=== PATIENT | male | born 1960 | race Caucasian/White ===

== ENCOUNTER → 2019-05-28 10:44 | Outpatient (BNVA) | payer MEDICAID, SELFPAY | PROVIDERS: Family Provider Nurse Practitioner; PCP Nurse Practitioner; Visit Provider Nurse Practitioner | DX: I10 Essential (primary) hypertension (principal); F41.9 Anxiety disorder, unspecified; J30.1 Allergic rhinitis due to pollen; J44.9 Chronic obstructive pulmonary disease, unspecified; K21.9 Gastro-esophageal reflux disease without esophagitis; E55.9 Vitamin D deficiency, unspecified | CPT/HCPCS: 80053; 80061; 82306; 85025 ==

== ENCOUNTER 2019-07-02 08:32 | Outpatient (CLI) | payer MEDICAID, SELFPAY ==
--- NOTE | 2019-07-02 08:37 | CT_ITS ---
WS: [id number] CT NECK WITH CONTRAST HISTORY: MALIGNANT NEOPLASM OF BASE OF TONGUE TECHNIQUE: Contiguous 5 mm axial images are performed through the neck with intravenous contrast. Sag ittal and coronal reformats are also submitted. All CT scans at [facility] use at least o ne of these dose optimization techniques: automated exposure control; mA and/or kV adjustment per pat ient size (includes targeted exams where dose is matched to clinical indication); or iterative recons truction. CONTRAST: CONTRAST: Visipaque 320; 95 mL IV. DLP: 1687.68 mGycm COMPARISON: 01/30/2019 and 12/14/2018, PET/CT 04/21/2018 Nasopharynx, oropharynx, hypopharynx and larynx are unremarkable. No soft tissue masses or abnormal e nhancement. No mass or abnormal enhancement at the tongue base. Torus tubarius and fossa of Rosenmuller and parapharyngeal fat are normal. No significant lymphadenopathy is identified. Surgical clips along LEFT cervical chain from prior nod al dissection. Thyroid gland and salivary glands are normally enhancing with no masses. Mild cervical spondylitic changes at C5-6 are similar to prior studies. Visualized portions of the skull base demonstrate no abnormalities. Orbits and globes are within norm al limits. No soft tissue masses. Visualized paranasal sinuses and mastoid air cells are normal. Lung apices are clear. 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 CT/CT neck w con* [id number] IMPRESSION: 1. Stable neck CT. No evidence for new or recurrent mass at the tongue base. 2. No adenopathy. 3. Prior LEFT cervical ju dissection is stable.
[2019-07-02] MEDS: iodixanol 320 mg/mL 100mL Btl IV (09:16)
== END 2019-07-02 08:33 | disposition home or self-care (01) ==
LOC: RADWPI 08:37
PROVIDERS: Family Provider Nurse Practitioner; PCP Nurse Practitioner; Visit Provider Radiology Radiation Oncology
DX: C01 Malignant neoplasm of base of tongue (principal)
CPT/HCPCS: 70491; Q9967

== ENCOUNTER 2019-07-03 10:15 | Outpatient (CLI) | payer MEDICAID, SELFPAY ==
--- NOTE | 2019-07-03 11:36 | ONCRAD EPV_ITS ---
Radiation Oncology Established Patient Visit Patient: Bryson MR#: [id number] : 1960> Age: 59> Sex: Male> Dictated by: Dr. Irvin Perry Date of Service: 07/03/2019 Referring Physician(s) : Dr. Bernabe Douglas Diagnosis: C01 - Malignant neoplasm of base of tongue, Diagnosed 05/02/2017 (Active) Stage DEREK, T1o, N2, M0 Radiotherapy to Date: Course: C1 Treatment Site: [id number] Ref. ID: [id number] Energy: 6X Dose/Fx (cGy): 200 #Fx: 22 / 30 Dose Correction (cGy): 0 Total Dose (cGy): 4,400 Start Date: 05/11/2017 End Date: 06/13/2017 Elapsed Days: 33 Course: C1 Treatment Site: [id number] Ref. ID: [id number] Energy: 6X Dose/Fx (cGy): 200 #Fx: 8 / 8 Dose Correction (cGy): 0 Total Dose (cGy): 1,600 Start Date: 06/16/2017 End Date: 06/27/2017 Elapsed Days: 11 Course: C1 Treatment Site: [id number] Ref. 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 He reports continued dry mouth and altered taste with some gradual improvement. He denies sore throat, ear pain, odynophagia, dysphagia, cough, abdominal pain, nausea, vomiting, bone pain, choking, aspiration or difficulty breathing. He underwent a PET/CT on 12/02/2017 which showed no evidence for residual or recurrent malignancy. CT of neck with contrast on 05/08/2018 showed no evidence of recurrent / metastatic disease. CT of neck with contrast on 12/14/2018 showed no evidence of residual or recurrent tongue base neoplasm or cervical lymphadenopathy. Most recent CT of neck with IV contrast on July 02, 2019 showed no evidence for new or recurrent mass at the base of tongue and no cervical lymphadenopathy. It is overall stable CT scan unchanged from previous ones. The patient is doing well and denies fatigue, poor appetite, significant weight loss, cough, shortness breath, abdominal pain, nausea, vomiting or bone pain. Current Medications: Acetaminophen, aspirin Low Dose, budesonide-Formoterol Fumarate, claritin, lisinopril, nasonex, omeprazole, proAir HFA, vistaril. Allergies: Dilaudid, Morphine Sulfate, FentaNYL HCl, Hydrocodone-Acetaminophen and OxyCODONE HCl. Current Complaints / Review of Systems: Constitutional - Denies lack of appetite, fatigue, fever and night sweats. Eyes - Denies blurred vision. ENMT - Complains of problems with hearing in both ears. Complains of mouth dryness. Complains of altered taste with certain foods. Complains of tinnitus. Denies dysphagia, ear pain and stomatitis. Neck - Denies neck pain and decreased range of motion. Integumentary - Denies rash. Cardiovascular - Denies arrhythmias, chest pain and edema. Respiratory - Complains of cough which is dry and hiccoughs occasionally. Denies dyspnea and wheezing. Gastrointestinal - Denies abdominal pain, constipation, diarrhea, heartburn / dyspepsia, melena / GI bleeding, nausea and vomiting. Genitourinary (M) - Complains of nocturia gets up about 1 to 2 times per night. Denies dysuria, frequency and urgency. Musculoskeletal - Complains of arthritis and joint pain. Denies bone pain and muscle weakness. Neurologic - Complains of headaches in which he has h/o having migraines. Denies dizziness and abnormal gait. Endocrine - Denies diabetes and thyroid disease. Hematologic/Lymphatic - Denies tender or enlarged lymph nodes.. Vital Signs: Performed on 07/03/2019 10:41 AM BMI - 34.322 kg/m2 (high), Height - 70.00 in, Weight - 239.2 lbs, Temperature - 98.7 f, Pulse - 72, Respiration - 18, O2 Sat - 96 %, Pain - 7 and BP - 131/ 89 mm(hg). Physical Exam: General: Alert and oriented x 3. No acute distress. HEENT: Normocephalic, atraumatic. Extraocular Movements Intact: Pupils Equal, Round, Reactive to Light and Accommodation: Sclerae anicteric. Oral cavity is clear without lesions, masses or ulcers. NECK: Well-healed surgical incision from previous neck dissection, supple without supraclavicular or jugular lymphadenopathy. LUNGS: Clear to auscultation bilaterally without rales, rhonchi or wheeze. HEART: Regular rate and rhythm, normal S1 and S2 without murmur, gallop or rub. MUSCULOSKELETAL: No tenderness or percussion pain over the axial skeleton, scapulae or pelvis. ABDOMEN: Soft, nontender, nondistended without masses or organomegaly. Bowel sounds are present. EXTREMITIES: No peripheral edema is identified. Limited motor and sensory examination are grossly intact and symmetric bilaterally. NEUROLOGIC: Cranial nerves II ???XII are grossly intact. Normal sensation, strength 5/5 in all extremities, normal gait, no ataxia. Performance Status: 0 - Fully active, able to carry on all predisease activities without restrictions. (ECOG) Lab: None pending. Pathology: squamous cell carcinoma Imaging: See HPI Impression/plan: There is no clinical evidence of recurrent head and neck cancer. We will continue cancer surveillance. I encouraged the patient to continue to follow up with Dr. Douglas of ENT. I will order a CT of neck in 4-6 months. The patient will follow up with me afterwards. Signed by: 07/03/2019 11:34:29 AM <<Signature on File>> CPT Code: CPT Code: Signed By: Dr. Irvin Perry, 07/03/2019 11:34:30 AM <<Signature on File>>
== END 2019-07-03 10:16 | disposition home or self-care (01) ==
LOC: ONCMED 10:17
PROVIDERS: Family Provider Nurse Practitioner; PCP Nurse Practitioner; Visit Provider Radiology Radiation Oncology
DX: Z08 Encounter for follow-up examination after completed treatment for malignant neoplasm (principal); Z85.810 Personal history of malignant neoplasm of tongue; Z79.82 Long term (current) use of aspirin; Z79.891 Long term (current) use of opiate analgesic; Z92.3 Personal history of irradiation; Z92.21 Personal history of antineoplastic chemotherapy
CPT/HCPCS: 99213

== ENCOUNTER 2019-07-08 11:20 | Outpatient (CLI) | payer MEDICAID, SELFPAY ==
--- NOTE | 2019-07-08 11:27 | XR_ITS ---
WS: [id number] XR chest 2V* [id number] REASON FOR EXAM: COUGH FINDINGS: The heart and mediastinal interfaces are normal. The lung stevenson are well aerated. No pneumonia, pleural effusion, pulmonary edema, or mass effect. No osseous abnormalities other than degenerate changes of the thoracic spine. The hilum and apices are normal. XR/XR chest 2V* [id number] IMPRESSION: Negative chest for active pathology.
== END 2019-07-08 11:21 | disposition home or self-care (01) ==
LOC: RAD 11:24
PROVIDERS: Family Provider Nurse Practitioner; PCP Nurse Practitioner; Visit Provider Specialist
DX: R05 Cough (principal)
CPT/HCPCS: 71046

== ENCOUNTER → 2019-08-02 08:33 | Outpatient (BNVA) | payer MEDICAID, SELFPAY | PROVIDERS: Family Provider Nurse Practitioner; PCP Nurse Practitioner; Visit Provider Nurse Practitioner Family | DX: R09.89 Other specified symptoms and signs involving the circulatory and respiratory systems (principal); J32.9 Chronic sinusitis, unspecified | CPT/HCPCS: 87804 ==

== ENCOUNTER 2019-08-10 15:29 | Emergency (ER) | payer MEDICAID, SELFPAY ==
[2019-08-10 15:29] VITALS: BP 172/98; PULSE 62; RESP 16; TEMP 36.6; O2SAT 97
[2019-08-10 15:30] VITALS: BMI 35.2
[2019-08-10 15:32] VITALS: O2SAT 98
--- NOTE | 2019-08-10 15:34 | ED_ITS ---
HPI - Headache General: Chief Complaint: Headache Stated Complaint: HEADACHE, VISUAL DISTURBANCE Time Seen by Provider: 08/10/19 15:34 Source: patient Mode of arrival: EMS Limitations: no limitations History of Present Illness: HPI Narrative: Patient is a very nice 59-year-old gentleman who presents to the ED today with complaints of a headache. Patient tells me he has suffered from migraine headaches for a long time but states he has not had one in approximately 6 to 8 months. Patient states his migraine headaches are normally treated successfully with OTC Excedrin or Advil. Patient tells me his headache today is slightly different than his normal migraine stating it is only affecting his right side. He is complaining of some mild photophobia in the right eye but denies any double vision or loss of vision. Patient is not having any lightheadedness/dizziness, slurred speech, facial drooping, paresthesias, sensory changes, problems with balance, weakness or ti ngling to extremities. He has not had any recent injury or trauma. States he was recently treated for sinus infection but denying nasal pain/pressure/discharge. MD elicited complaint: headache and migraine Onset description: gradually Location: right Exacerbating factors: light and noise Relieving factors: nothing Context: occurred at rest Associated symptoms: Reports no associated symptoms; Deny chest pain, confusion, fever(s), lightheadedness, nausea, pre-syncope, rash, syncope or vomiting Review of Systems Const: Denies: fever, chills, body aches or fatigue Eyes: Reports: photophobia; Denies: change in vision, blurry vision, eye discomfort, eye discharge, floaters or seeing flashes ENMT: Denies: throat pain, enlarged tonsils, painful swallowing, swelling of lips/tongue, oral sores/lesions, ear pain, ear discharge, nasal discharge, nasal congestion, post nasal drip or facial/sinus pain Card: Denies: chest pain, palpitations, irregular heart rhythm, edema, lightheadedness, syncope or pre-syncope Resp: Denies: shortness of breath, productive cough, non-productive cough or chest congestion GI: Denies: nausea or vomiting Musc: Denies: neck pain or back pain Skin/Breast: Denies: rash Neuro: Reports: headache; Denies: numbness in extremities, weakness in extremities, changes in sensation, lack of coordination, difficulty walking, frequent falls, dizziness, vertigo, confusion, slurred speech or seizure-like activity All/Imm: Denies: facial swelling or seasonal allergies PFSH ED PFSH: Medical History (Updated 08/10/19 @ 16:47 by FERMÍN Wall) GERD (gastroesophageal reflux disease) HTN (hypertension) Hx of neoplasm neck and tongue left working with [facility] Insomnia Vitamin D deficiency Surgical History (Updated 06/01/19 @ 15:00 by AISHA Mcneil) History of tonsillectomy 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 January 2017 Family History (Updated 05/24/19 @ 11:40 by Jade Grayson LPN) Mother Cancer Grandmother Cancer Denies family history of Clotting disorder Social History (Updated 05/24/19 @ 11:41 by Jade Grayson LPN) Smoking and tobacco status: never smoked Alcohol intake: never Marital status: History of recent travel: No Physical Exam Const: COMMON NORMALS: no apparent distress, average body habitus, oriented x3, no limitations, healthy appearing, alert and well nourished ORIENTATION/CONSCIOUSNESS: Yes oriented to person, Yes oriented to place and Yes oriented to time HENMT: COMMON NORMALS: normocephalic, head/scalp atraumatic, hearing grossly normal bilaterally, external ears normal, EAC's normal, TM's normal bilaterally, external nose normal, nasal mucous membranes and turbinates normal, moist oral mucous membranes and oropharynx normal HEAD & SCALP: normal to inspection, normocephalic and atraumatic FACE & SINUS: normal facial exam and sinuses nontender NOSE: external nose normal and nasal mucous membranes and turbinates normal EXTERNAL EAR: Yes external ears normal EXTERNAL AUDITORY CANAL: EAC's normal TYMPANIC MEMBRANE: TM's normal bilaterally MOUTH: oral and palatal mucosa normal THROAT: posterior oropharynx normal, tonsils normal and uvula midline Eye: COMMON NORMALS: PERRL, EOMs intact bilaterally and conjunctivae normal CONJUNCTIVA: Yes conjunctivae normal PUPIL: Yes PERRL Neck/C-Spine: COMMON NORMALS: full ROM, no lymphadenopathy and no meningeal signs Neuro: PERRY COMA SCALE: document GCS findings Perry coma scale eye opening: Spontaneous Perry coma scale verbal response: Orientated Eastern coma scale motor response: Obey commands Perry coma scale total score: 15 COMMON NORMALS: oriented x3, CN's II-XII intact bilaterally, moves all extremities, no focal motor deficits, no sensory deficits noted and gait normal SENSORIUM/ORIENTATION: Yes alert, Yes oriented to person, Yes oriented to place and Yes oriented to time MENINGEAL SIGNS: Yes no meningeal signs CRANIAL NERVES: Yes CN normal except as noted COORDINATION/BALANCE: [id number] test normal and [id number] test normal SPEECH: speech normal GAIT: Yes normal gait MOTOR EXAM: strength 5/5 throughout COORDINATION: [id number] test normal and [id number]-[id number] test normal PUPIL EXAM: Normal pupillary reactivity/response: bilateral (no nystagmus ) Course Vital Signs: Vital signs: Vital Signs Temperature 97.8 F 08/10/19 15:29 Pulse Rate 62 08/10/19 15:29 Respiratory Rate 16 08/10/19 15:29 Blood Pressure 172/98 08/10/19 15:29 Pulse Oximetry 98 08/10/19 15:32 MDM - Headache MDM Narrative: Medical decision making narrative: pts COE down from a 10/10 to a 4/10 and he feels comfortable going home Discharge Plan Discharge Patient Disposition: Home, Self-Care Clinical Impression: Migraine Qualifiers: Migraine type: without aura Status migrainosus presence: without status migrainosus Intractability: not intractable Qualified Code(s): G43.009 - Migraine without aura, not intractable, without status migrainosus Condition: Stable Prescriptions: No Action aspirin 81 mg tablet,delayed release (DR/EC) 81 mg PO ONCE RF: 0 omega-3 fatty acids [Fish Oil Concentrate] 1,000 mg capsule 1,000 mg PO BID RF: 0 Symbicort 160-4.5 mcg/actuation HFA aerosol inhaler 2 puff INHALATION BID RF: 0 cholecalciferol (vitamin D3) 5,000 unit capsule 5,000 unit PO ONCE RF: 0 hydroxyzine pamoate [Vistaril] 25 mg capsule 25 mg PO BID Qty: 60 RF: 2 albuterol sulfate [ProAir HFA] 90 mcg/actuation HFA aerosol inhaler 2 puff INHALATION QID PRN (Reason: shortness of breath or wheezing) Qty: 18 RF: 2 lisinopril 20 mg tablet 20 mg PO BID Qty: 60 RF: 0 loratadine [Claritin] 10 mg tablet 10 mg PO ONCE Qty: 30 RF: 2 montelukast [Singulair] 10 mg tablet 10 mg PO ONCE Qty: 30 RF: 2 omeprazole 40 mg capsule,delayed release(DR/EC) 40 mg PO ONCE Qty: 30 RF: 2 triamcinolone acetonide [Nasacort] 55 mcg aerosol,spray 1 spray INTRANASAL BID Qty: 16.9 RF: 2 amoxicillin-pot clavulanate [Augmentin] 875-125 mg tablet 1 tab PO BID Qty: 20 RF: 0 Discharge Orders: Discharge Order (Routine); Ordered 08/10/19 Ordered By: Grace Rodriguez Referrals: Andry Sanabria, [facility]PA[facility] [Primary Care Provider] - Discharge Diet: Usual diet Discharge Activity: Increase activity as tolerated Patient Instructions: Headache - Migraine (Adult), Migraine Headache (ED), Ocular Migraine (ED) Coding Level of Care Code ED [employer] Operator for Juan Albertog Fwd Exam Detailed
[2019-08-10] MEDS: metoclopramide 5 mg/mL SDV 2 mL 10 MG IVP (15:59)
[2019-08-10] MEDS: dihydroergotamine 1 mg/mL Inj IVP (16:11)
[2019-08-10] MEDS: valproic acid inj 500 MG in sodium chloride 0.9% 50 ML 55 MG IV (16:51)
[2019-08-10 17:36] VITALS: BP 159/97; PULSE 68; RESP 17; O2SAT 98
== END 2019-08-10 17:37 | disposition home or self-care (01) ==
PROVIDERS: Emergency Provider Physician Assistant; Family Provider Nurse Practitioner; PCP Nurse Practitioner
DX: G43.909 Migraine, unspecified, not intractable, without status migrainosus (principal); I10 Essential (primary) hypertension; R40.2412 Glasgow coma scale score 13-15, at arrival to emergency department
CPT/HCPCS: 12345; 96365; 96375; 99282; 99283; J1110; J2765

== ENCOUNTER → 2019-08-20 09:47 | Outpatient (BNVA) | payer MEDICAID, SELFPAY | PROVIDERS: Family Provider Nurse Practitioner; PCP Nurse Practitioner; Visit Provider Nurse Practitioner | DX: E11.9 Type 2 diabetes mellitus without complications (principal); I10 Essential (primary) hypertension; J44.9 Chronic obstructive pulmonary disease, unspecified; E55.9 Vitamin D deficiency, unspecified | CPT/HCPCS: 80053; 80061; 82306 ==

== ENCOUNTER → 2019-08-22 08:39 | Outpatient (BNVA) | payer MEDICAID, SELFPAY | PROVIDERS: Family Provider Nurse Practitioner; PCP Nurse Practitioner; Visit Provider Nurse Practitioner | DX: J44.9 Chronic obstructive pulmonary disease, unspecified (principal); J30.1 Allergic rhinitis due to pollen; F41.9 Anxiety disorder, unspecified | CPT/HCPCS: 84443 ==

== ENCOUNTER → 2019-11-04 15:03 | Outpatient (BNVA) | payer MEDICAID, SELFPAY | PROVIDERS: Family Provider Nurse Practitioner; PCP Nurse Practitioner; Visit Provider Nurse Practitioner | DX: E55.9 Vitamin D deficiency, unspecified (principal); I10 Essential (primary) hypertension; J44.9 Chronic obstructive pulmonary disease, unspecified | CPT/HCPCS: 80053; 80061; 82306; 85025 ==

== ENCOUNTER → 2020-02-03 16:45 | Outpatient (BNVA) | payer MEDICAID, SELFPAY | PROVIDERS: Family Provider Nurse Practitioner; PCP Nurse Practitioner; Visit Provider Nurse Practitioner Family | DX: Z11.59 Encounter for screening for other viral diseases (principal) | CPT/HCPCS: 87635 ==

== ENCOUNTER → 2020-02-11 09:28 | Outpatient (BNVA) | payer MEDICAID, SELFPAY | PROVIDERS: Family Provider Nurse Practitioner; PCP Nurse Practitioner; Visit Provider Nurse Practitioner | DX: E55.9 Vitamin D deficiency, unspecified (principal); E78.2 Mixed hyperlipidemia; I10 Essential (primary) hypertension | CPT/HCPCS: 80053; 80061; 82306; 85025 ==

== ENCOUNTER 2020-02-17 08:38 | Outpatient (CLI) | payer MEDICAID, SELFPAY ==
--- NOTE | 2020-02-17 08:50 | CT_ITS ---
WS: [id number] CT NECK TECHNIQUE: Contrast-enhanced CT of the neck with coronal and sagittal reformatted images. CLINICAL INFORMATION: BASE OF TONGUE CANCER COMPARISON: July 02, 2019 DLP: 1538.[address] scans at [facility] use at least one of these dose optimization techniques: automat ed exposure control; mA and/or kV adjustment per patient size (includes targeted exams where dose is matched to clinical indication); or iterative reconstruction. FINDINGS: Incidental aberrant right subclavian artery. No evidence of new or progressed disease at the tongue b ase. No supraglottic or glottic mass. Normal posterior nasopharynx and parapharyngeal fat. Normal karen lecula and piriform sinuses. Thyroid gland is normal. Normal parotid glands. Normal submandibular gla nds. No cervical lymphadenopathy. Prior left neck dissection with surgical clips. Normal cervical spine. L guicho apices are well aerated. CT/CT neck w con* [id number] IMPRESSION: 1. No evidence of residual/recurrent tongue base neoplasm. 2. Prior postoperative changes prior left lymph node dissection. 3. No cervical lymphadenopathy. 4. No evidence of supraglottic or glottic mass. 5. No significant changes since the prior examination.
[2020-02-17] MEDS: iodixanol 320 mg/mL 100mL Btl IV (09:03)
== END 2020-02-17 08:39 | disposition home or self-care (01) ==
LOC: RADWPI 08:43
PROVIDERS: Family Provider Nurse Practitioner; PCP Nurse Practitioner; Visit Provider Radiology Radiation Oncology
DX: C01 Malignant neoplasm of base of tongue (principal)
CPT/HCPCS: 70491; Q9967

== ENCOUNTER → 2020-04-13 11:18 | Outpatient (BNVA) | payer MEDICAID, SELFPAY | PROVIDERS: PCP Nurse Practitioner; Visit Provider Nurse Practitioner Family | DX: Z20.828 Contact with and (suspected) exposure to other viral communicable diseases (principal); J06.9 Acute upper respiratory infection, unspecified | CPT/HCPCS: 87635 ==

== ENCOUNTER → 2020-05-27 08:26 | Outpatient (BNVA) | payer MEDICAID, SELFPAY | PROVIDERS: PCP Nurse Practitioner; Visit Provider Nurse Practitioner | DX: J44.9 Chronic obstructive pulmonary disease, unspecified (principal); E55.9 Vitamin D deficiency, unspecified; K21.9 Gastro-esophageal reflux disease without esophagitis; J30.1 Allergic rhinitis due to pollen | CPT/HCPCS: 80053; 80061; 82306; 85025 ==

== ENCOUNTER → 2020-08-24 08:39 | Outpatient (BNVA) | payer MEDICAID, SELFPAY | PROVIDERS: PCP Nurse Practitioner; Visit Provider Nurse Practitioner | DX: J44.9 Chronic obstructive pulmonary disease, unspecified (principal); E55.9 Vitamin D deficiency, unspecified; I10 Essential (primary) hypertension | CPT/HCPCS: 80053; 80061; 82306; 85025 ==

== ENCOUNTER → 2020-11-10 09:57 | Outpatient (BNVA) | payer MEDICAID, SELFPAY | PROVIDERS: PCP Nurse Practitioner; Visit Provider Nurse Practitioner | DX: I10 Essential (primary) hypertension (principal); E78.1 Pure hyperglyceridemia; E55.9 Vitamin D deficiency, unspecified; J44.9 Chronic obstructive pulmonary disease, unspecified | CPT/HCPCS: 80053; 80061; 82306; 85025 ==

== ENCOUNTER → 2021-02-01 08:02 | Outpatient (BNVA) | payer MEDICAID, SELFPAY | PROVIDERS: PCP Nurse Practitioner; Visit Provider Nurse Practitioner | DX: E55.9 Vitamin D deficiency, unspecified (principal); E78.2 Mixed hyperlipidemia; J44.9 Chronic obstructive pulmonary disease, unspecified | CPT/HCPCS: 80053; 80061; 82306 ==

== ENCOUNTER → 2021-02-03 10:24 | Outpatient (BNVA) | payer MEDICAID, SELFPAY | PROVIDERS: PCP Nurse Practitioner; Visit Provider Nurse Practitioner | DX: I10 Essential (primary) hypertension (principal); J44.9 Chronic obstructive pulmonary disease, unspecified; E78.2 Mixed hyperlipidemia; J30.1 Allergic rhinitis due to pollen; K21.9 Gastro-esophageal reflux disease without esophagitis; F41.9 Anxiety disorder, unspecified; F32.9 Major depressive disorder, single episode, unspecified; Z12.5 Encounter for screening for malignant neoplasm of prostate; E55.9 Vitamin D deficiency, unspecified | CPT/HCPCS: 85025; G0103 ==

== ENCOUNTER → 2021-04-26 08:19 | Outpatient (BNVA) | payer MEDICAID, SELFPAY | PROVIDERS: PCP Nurse Practitioner; Visit Provider Nurse Practitioner | DX: I10 Essential (primary) hypertension (principal); E55.9 Vitamin D deficiency, unspecified; J44.9 Chronic obstructive pulmonary disease, unspecified; E78.2 Mixed hyperlipidemia | CPT/HCPCS: 80053; 80061; 82306; 85025 ==

== ENCOUNTER → 2021-05-28 13:49 | Outpatient (BNVA) | payer MEDICAID, SELFPAY | PROVIDERS: PCP Nurse Practitioner; Visit Provider Nurse Practitioner Family | DX: Z11.52 Encounter for screening for COVID-19 (principal) | CPT/HCPCS: 87635 ==

== ENCOUNTER → 2021-07-20 08:37 | Outpatient (BNVA) | payer MEDICAID, SELFPAY | PROVIDERS: PCP Nurse Practitioner; Visit Provider Nurse Practitioner | DX: E55.9 Vitamin D deficiency, unspecified (principal); J44.9 Chronic obstructive pulmonary disease, unspecified | CPT/HCPCS: 80053; 80061; 82306; 85025 ==

== ENCOUNTER → 2021-08-16 15:46 | Outpatient (BNVA) | payer MEDICAID, SELFPAY | PROVIDERS: PCP Nurse Practitioner; Visit Provider Nurse Practitioner Family | DX: M25.511 Pain in right shoulder (principal) | CPT/HCPCS: 73030 ==

== ENCOUNTER 2021-10-01 09:32 | Emergency (ER) | payer MEDICAID, SELFPAY ==
[2021-10-01 09:36] VITALS: BP 179/98; PULSE 110; RESP 16; O2SAT 95; BMI 33.0
[2021-10-01 09:40] VITALS: O2SAT 97
[2021-10-01 10:11] VITALS: BP 162/98; PULSE 94; RESP 16; O2SAT 96
--- NOTE | 2021-10-01 10:38 | XR_ITS ---
WS: [id number] XR chest 1V portable [id number] REASON FOR EXAM: dyspnea/cough FINDINGS: The chest is unchanged compared to 07/08/2019. Mild tortuosity thoracic aorta with normal heart size. Calcified granulomatous disease bilaterally. No active pulmonary parenchymal or pleural disease. Degenerative spondylosis in the mid and lower thoracic spine, moderate. XR/XR chest 1V portable [id number] IMPRESSION: No acute chest abnormality.
[2021-10-01 10:41] VITALS: BP 166/97; PULSE 88; RESP 16; O2SAT 96
[2021-10-01 11:10] LABS: Add Urine Microscopic? NO; Charge for UA Resulting for Rev
[2021-10-01 11:11] LABS: Basophils % 0.9 %; Eosinophils % 0.3 %; Hemoglobin 16.3 g/dL (11.7-16.6); Lymphocytes # 0.5 10^3/uL (0.8-4.8); Lymphocytes % 16.3 %; Mean Corpuscular Hemoglobin 31.2 pg (28.0-34.0); Mean Corpuscular Volume 91.8 fl (80-94); Mean Platelet Volume 9.8 fL (7.4-10.4); Monocytes # 0.6 10^3/uL (0.2-0.9); Monocytes % 18.5 %; Neutrophils # 2.07 10^3/uL (1.8-7.7); Neutrophils % 63.7 %; Nucleated Red Blood Cells % 0 %; Platelet Count 251 10^3/cmm (130-400); Red Blood Count 5.23 10^6/uL (4.1-5.3); Red Cell Distribution Width 12.3 % (12.1-15.1); White Blood Count 3.3 10^3/uL (4.0-10.0)
[2021-10-01 11:17] LABS: Bilirubin Urine Neg (Negative); Blood Urine Neg (Negative); Glucose Urine UA Norm (Normal); Ketones Urine Negative (Negative); Nitrate Urine Negative (Negative); Protein Urine Neg (Negative); Urine Appearance Clear (CLEAR); Urine Color Yellow (Yellow); pH Urine 6.5 (5-7)
--- NOTE | 2021-10-01 11:17 | ED_ITS ---
HPI - COVID General: Chief Complaint: COVID symptoms Stated Complaint: N/V/D [place] Time Seen by Provider: 10/01/21 09:35 Source: patient Mode of arrival: ambulatory Limitations: no limitations Triage information: No fever, cough or shortness of breath . No known COVID + exposure last 14 days History of Present Illness: 61-year-old male presents emergency room with complaints having tested positive for COVID yesterday. Symptoms started about 3 to 4 days ago. He has had some diarrhea. Nonproductive cough. MD complaint: known COVID positive Prior covid testing: yes, results known Prior testing date: 09/28/21 COVID 19 common symptoms: positive fever(s), chills, cough, non-productive cough, dyspnea, body aches, nausea, vomiting and diarrhea; negative productive cough, throat pain or nasal congestion COVID 19 other sytmptoms: negative chest pain Onset (ago): day(s) (3) Pertinent comorbid conditions: COPD/respiratory disease Treatment prior to arrival: acetaminophen and ibuprofen COVID Results: SARS-CoV-2 Antigen (Rapid) Positive (Negative) H 10/01/21 12:25 10/01/21 SARS-CoV-2 RNA (RT-PCR) Not detected (NOT DETECTED) 05/28/21 13:49 05/28/21 Review of Systems Const: Reports: fever(s), chills and body aches ENMT: Denies: throat pain, ear or mastoid pain, nasal discharge or nasal congestion Card: Denies: chest pain, edema, dyspnea on exertion or orthopnea Resp: Reports: dyspnea and non-productive cough; Denies: productive cough GI: Reports: nausea, vomiting and diarrhea; Denies: abdominal pain : Denies: flank pain, difficulty urinating, dysuria, urinary frequency or urinary urgency Skin/Breast: Denies: rash or pruritus PFSH ED PFSH: Medical History CKD (chronic kidney disease) stage 3, GFR 30-59 ml/min Essential hypertension GERD (gastroesophageal reflux disease) Hx of neoplasm neck and tongue left working with 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 Family History Mother Cancer Grandmother Cancer Denies family history of Clotting disorder Social History Smoking and tobacco status: never smoked Second hand smoke exposure: No Smoking risk assessment/counseling performed?: No Alcohol intake: never Desire information about alcohol rehabilitation?: No Counseling given: No Desire information about substance/drug rehabilitation?: No Counseling given: No Adopted: No Caregiver/support person: No Lives independently: Yes Household members: other Housing: House Marital status: Unknown Highest education level completed: Associate Degree: Academic Program service: No Current occupational status: disabled History of recent travel: No Current gender identity: Male Special chris needs: No Physical Exam Const: COMMON NORMALS: no acute distress GENERAL APPEARANCE: cooperative and comfortable ORIENTATION/CONSCIOUSNESS: Yes awake, Yes oriented to person, Yes oriented to place and Yes oriented to time HENMT: COMMON NORMALS: normocephalic, atraumatic and hearing grossly normal bilaterally HEAD & SCALP: normocephalic and atraumatic Neck/C-Spine: COMMON NORMALS: no JVD Resp: COMMON NORMALS: normal respiratory effort, No retractions, No use of accessory muscles and clear to auscultation bilaterally AUSCULTATION: clear to auscultation bilaterally Cardio: COMMON NORMALS: no JVD, regular rate, regular rhythm and No murmurs present (Cardio) RATE: regular rate RHYTHM: regular rhythm GI: COMMON NORMALS: Soft to palpation and No hepatosplenomegaly present AUSCULTATION: Yes normoactive bowel sounds PALPATION: Yes Soft to palpation, No Tenderness to palpation present (GI), No Guarding due to palpation present (GI) and Yes No hepatosplenomegaly present Extremity: COMMON NORMALS: normal to inspection, capillary refill normal, no clubbing, cyanosis or edema, no calf tenderness and no pedal edema Neuro: SENSORIUM/ORIENTATION: Yes oriented to person, Yes oriented to place and Yes oriented to time Skin: COMMON NORMALS: no rashes or lesions noted GENERAL SKIN EXAM: no rashes or lesions noted Course Vital Signs: Vital signs: Vital Signs Pulse Rate 88 10/01/21 10:41 Respiratory Rate 16 10/01/21 10:41 Blood Pressure 166/97 10/01/21 10:41 Pulse Oximetry 96 10/01/21 10:41 MDM - COVID Medical Decision Making Patient tolerating well oxygen was good discussed risks and benefits he would like to proceed with the pack Slo-Bid prescription written form filled out. Monitor oxygen sats return if he gets short of breath. Medical Records I reviewed the patient's medical records. Lab Data I reviewed the patient's lab results. : 10/01/21 10:55 10/01/21 10:55 Radiology Impressions Chest X-Ray 10/01/21 10:38 IMPRESSION: No acute chest abnormality. Laboratory Results WBC 3.3 10^3/uL (4.0-10.0) L 10/01/21 10:55 RBC 5.23 10^6/uL (4.1-5.3) 10/01/21 10:55 Hgb 16.3 g/dL (11.7-16.6) 10/01/21 10:55 Hct 48.0 % (42.0-52.0) 10/01/21 10:55 MCV 91.8 fl (80-94) 10/01/21 10:55 MCH 31.2 pg (28.0-34.0) 10/01/21 10:55 MCHC 34.0 g/dL (30.0-36.0) 10/01/21 10:55 RDW 12.3 % (12.1-15.1) 10/01/21 10:55 Plt Count 251 10^3/cmm (130-400) 10/01/21 10:55 MPV 9.8 fL (7.4-10.4) 10/01/21 10:55 Neut % (Auto) 63.7 % 10/01/21 10:55 Lymph % (Auto) 16.3 % 10/01/21 10:55 [place] % (Auto) 18.5 % 10/01/21 10:55 Eos % (Auto) 0.3 % 10/01/21 10:55 Baso % (Auto) 0.9 % 10/01/21 10:55 Neut # (Auto) 2.07 10^3/uL (1.8-7.7) 10/01/21 10:55 Lymph # (Auto) 0.5 10^3/uL (0.8-4.8) L 10/01/21 10:55 [place] # (Auto) 0.6 10^3/uL (0.2-0.9) 10/01/21 10:55 Eos # (Auto) 0.0 10^3/uL (0.0-0.8) 10/01/21 10:55 Baso # (Auto) 0.0 10^3/uL (0.0-0.1) 10/01/21 10:55 Nucleated RBC % (auto) 0 % 10/01/21 10:55 Nucleated RBCs # 0.0 /100WBC 10/01/21 10:55 Sodium 135 mmol/L (136-145) L 10/01/21 10:55 Potassium 4.5 mmol/L (3.5-5.1) 10/01/21 10:55 Chloride 100 mmol/L (98-107) 10/01/21 10:55 Carbon Dioxide 25 mmol/L (22-29) 10/01/21 10:55 Anion Gap 14.5 (5-19) 10/01/21 10:55 BUN 23 mg/dL (8-23) 10/01/21 10:55 Creatinine 1.5 mg/dL (0.7-1.2) H 10/01/21 10:55 GFR Calculation 47.6 mL/min (90-130) L 10/01/21 10:55 Glucose 114 mg/dL (65-115) 10/01/21 10:55 Calculated Osmolality 285 mOsm/kg (285-295) 10/01/21 10:55 Calcium 9.8 mg/dL (8.5-10.5) 10/01/21 10:55 Total Bilirubin 0.2 mg/dL (0.15-1.2) 10/01/21 10:55 AST 49 U/L (0-40) H 10/01/21 10:55 ALT 46 U/L (0-41) H 10/01/21 10:55 Alkaline Phosphatase 52 IU/L (40-130) 10/01/21 10:55 Total Protein 7.8 g/dL (6.6-8.7) 10/01/21 10:55 Albumin 4.7 g/dL (3.5-5.2) 10/01/21 10:55 Globulin 3.1 g/dL (1.3-4.6) 10/01/21 10:55 Urine Color Yellow (Yellow) 10/01/21 10:55 Urine Appearance Clear (CLEAR) 10/01/21 10:55 Urine pH 6.5 (5-7) 10/01/21 10:55 Ur Specific [place] 1.010 (1.005-1.030) 10/01/21 10:55 Urine Protein Neg (Negative) 10/01/21 10:55 Urine Glucose (UA) Norm (Normal) 10/01/21 10:55 Urine Ketones Negative (Negative) 10/01/21 10:55 Urine Blood Neg (Negative) 10/01/21 10:55 Urine Nitrate Negative (Negative) 10/01/21 10:55 Urine Bilirubin Neg (Negative) 10/01/21 10:55 Urine Urobilinogen Norm mg/dL (Negative) 10/01/21 10:55 Ur Leukocyte Esterase Negative (Negative) 10/01/21 10:55 SARS-CoV-2 Ag (Rapid) Positive (Negative) H 10/01/21 12:25 Group A Strep Rapid Negative (Negative) 10/01/21 10:55 SARS-CoV-2 Antigen (Rapid) Positive (Negative) H 10/01/21 12:25 10/01/21 SARS-CoV-2 RNA (RT-PCR) Not detected (NOT DETECTED) 05/28/21 13:49 05/28/21 Discharge Plan Discharge Patient Disposition: Home Clinical Impression: COVID-19 Condition: Stable Prescriptions: New Paxlovid (EUA) 300 mg (150 mg x 2)-100 mg tablet See Rx Instructions .ROUTE .COMPLEX Qty: 10 0RF Rx Instructions: take ONE 150 mg tablet of nirmatrelvir with ONE 100 mg tablet of ritonavir twice daily for 5 days No Action aspirin 81 mg tablet,delayed release (DR/EC) 81 mg PO ONCE 0RF multivitamin [Daily Multi-Vitamin] Tablet 1 tab PO DAILY 0RF glucosamine sulfate 1,000 mg capsule 1,000 mg PO DAILY 0RF Rx Instructions: administer with meals cholecalciferol (vitamin D3) 125 mcg (5,000 unit) capsule 5,000 unit PO DAILY 0RF silver sulfadiazine [Silvadene] 1 % cream 1 applic TOPICAL DAILY Qty: 20 0RF Rx Instructions: apply a 1.5 mm thickness silver sulfadiazine 1 % cream 1 applic topical BID 14 Days Qty: 50 2RF Rx Instructions: apply a 1.5 mm thickness Farxiga 10 mg tablet 10 mg PO QAM Qty: 30 2RF albuterol sulfate [ProAir HFA] 90 mcg/actuation HFA aerosol inhaler 2 puff INHALATION QID PRN (Reason: shortness of breath or wheezing) Qty: 18 2RF amlodipine [Norvasc] 2.5 mg tablet 2.5 mg PO DAILY Qty: 30 2RF Symbicort 160-4.5 mcg/actuation HFA aerosol inhaler 2 puff INHALATION BID Qty: 10.2 2RF fenofibrate nanocrystallized [Tricor] 145 mg tablet 145 mg PO DAILY Qty: 30 2RF hydroxyzine pamoate [Vistaril] 25 mg capsule See Rx Instructions PO BID Qty: 90 2RF Rx Instructions: 1 in AM and 2 PM PO twice a day; icosapent ethyl [Vascepa] 1 gram capsule 2 g PO BID Qty: 120 2RF loratadine [Claritin] 10 mg tablet 10 mg PO DAILY Qty: 30 2RF montelukast [Singulair] 10 mg tablet 10 mg PO DAILY Qty: 30 2RF omeprazole 40 mg capsule,delayed release(DR/EC) 40 mg PO DAILY Qty: 30 2RF triamcinolone acetonide [Nasacort] 55 mcg aerosol,spray 1 spray INTRANASAL BID Qty: 16.9 2RF valsartan [Diovan] 320 mg tablet 320 mg PO DAILY Qty: 30 2RF Fish Oil 100-160-1,000 mg capsule PO 0RF tramadol 50 mg tablet 50 mg PO Q4H PRN (Reason: pain) Qty: 30 0RF Discharge Orders: Discharge ED (Routine); Ordered 10/01/21 Ordered By: Eran Turpin Referrals: Andry Sanabria, [employer] [Primary Care Provider] - Discharge Diet: Usual diet Discharge Activity: Resume usual activity Patient Instructions: Opioid Safety Activity Restrictions/Additional Instructions: Follow-up with your family practice doctor within the next week. Return if you have worsening breathing difficulties. 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
[2021-10-01 11:18] LABS: Leukocyte Esterase Urine Negative (Negative); Urobilinogen Urine Norm (Negative)
[2021-10-01 11:28] LABS: Rapid Strep A Test Negative (Negative)
[2021-10-01 11:29] LABS: Alanine Aminotransferase 46 U/L (0-41); Albumin Level 4.7 g/dL (3.5-5.2); Alkaline Phosphatase 52 IU/L (40-130); Aspartate Amino Transferase 49 U/L (0-40); Blood Urea Nitrogen 23 mg/dL (8-23); Calcium 9.8 mg/dL (8.5-10.5); Carbon Dioxide 25 mmol/L (22-29); Chloride 100 mmol/L (98-107); Globulin 3.1 g/dL (1.3-4.6); Glomerular Filtration Rate 47.6 mL/min (90-130); Glucose 114 mg/dL (65-115); Osmolality Calculated 285 mOsm/kg (285-295); Sodium 135 mmol/L (136-145); Total Bilirubin 0.2 mg/dL (0.15-1.2); Total Protein 7.8 g/dL (6.6-8.7)
[2021-10-01 11:31] LABS: Anion Gap 14.5 (5-19); Potassium 4.5 mmol/L (3.5-5.1)
[2021-10-01 13:22] LABS: SARS Covid-2 Antigen Positive (Negative)
== END 2021-10-01 15:05 | disposition home or self-care (01) ==
PROVIDERS: Emergency Provider Family Medicine; PCP Nurse Practitioner
DX: U07.1 COVID-19 (principal)
CPT/HCPCS: 71045; 80053; 81003; 85025; 87081; 87426; 87880; 99283

== ENCOUNTER → 2021-10-20 08:04 | Outpatient (BNVA) | payer MEDICAID, SELFPAY | PROVIDERS: PCP Nurse Practitioner; Visit Provider Nurse Practitioner | DX: R53.83 Other fatigue (principal); E55.9 Vitamin D deficiency, unspecified; J44.9 Chronic obstructive pulmonary disease, unspecified; I10 Essential (primary) hypertension; L60.3 Nail dystrophy | CPT/HCPCS: 80053; 83036; 84403; 84443; 85025 ==

== ENCOUNTER → 2021-10-22 09:03 | Outpatient (BNVA) | payer MEDICAID, SELFPAY | PROVIDERS: PCP Nurse Practitioner; Visit Provider Nurse Practitioner | DX: I10 Essential (primary) hypertension (principal); J44.9 Chronic obstructive pulmonary disease, unspecified; E78.2 Mixed hyperlipidemia; J30.1 Allergic rhinitis due to pollen; F41.9 Anxiety disorder, unspecified; F32.9 Major depressive disorder, single episode, unspecified; K21.9 Gastro-esophageal reflux disease without esophagitis; R53.83 Other fatigue; N18.30 Chronic kidney disease, stage 3 unspecified; E03.8 Other specified hypothyroidism; R73.09 Other abnormal glucose; E55.9 Vitamin D deficiency, unspecified | CPT/HCPCS: 81000 ==

== ENCOUNTER → 2022-01-12 08:03 | Outpatient (BNVA) | payer MEDICAID, SELFPAY | PROVIDERS: PCP Nurse Practitioner; Visit Provider Nurse Practitioner | DX: I10 Essential (primary) hypertension (principal); E55.9 Vitamin D deficiency, unspecified; E03.8 Other specified hypothyroidism | CPT/HCPCS: 80053; 80061; 82306; 84443; 85025 ==

== ENCOUNTER → 2022-01-13 08:36 | Outpatient (BNVA) | payer MEDICAID, SELFPAY | PROVIDERS: PCP Nurse Practitioner; Visit Provider Nurse Practitioner | DX: E03.8 Other specified hypothyroidism (principal); I10 Essential (primary) hypertension; J44.9 Chronic obstructive pulmonary disease, unspecified; N18.30 Chronic kidney disease, stage 3 unspecified; E78.2 Mixed hyperlipidemia; E78.5 Hyperlipidemia, unspecified; F41.9 Anxiety disorder, unspecified; F32.9 Major depressive disorder, single episode, unspecified; J30.1 Allergic rhinitis due to pollen; K21.9 Gastro-esophageal reflux disease without esophagitis | CPT/HCPCS: 81000 ==

== ENCOUNTER → 2022-02-03 07:47 | Outpatient (BNVA) | payer MEDICAID, SELFPAY | PROVIDERS: PCP Nurse Practitioner; Visit Provider Podiatrist Foot & Ankle Surgery | DX: L60.3 Nail dystrophy (principal); L60.0 Ingrowing nail | CPT/HCPCS: 11750 ==

== ENCOUNTER 2022-02-06 13:28 | Emergency (ER) | payer MEDICAID, SELFPAY ==
[2022-02-06] VITALS (27 sets, daily range): BP systolic 102–118; BP diastolic 61–72; PULSE 89; RESP 15–16; TEMP 36.8; O2SAT 85–97; BMI 30.9
--- NOTE | 2022-02-06 13:36 | CTR_ITS ---
PROCEDURE INFORMATION: Exam: CT Abdomen And Pelvis With Contrast Exam date and time: 02/06/2022 3:07 PM Age: 62 years old Clinical indication: Abdominal pain; Localized; Right lower quadrant (rlq); Additional info: Abd pain TECHNIQUE: Imaging protocol: Computed tomography of the abdomen and pelvis with contrast. Radiation optimization: All CT scans at this facility use at least one of these dose optimization techniques: automated exposure control; mA and/or kV adjustment per patient size (includes targeted exams where dose is matched to clinical indication); or iterative reconstruction. Contrast material: OMNI 350; Contrast volume: 80 ml; Contrast route: INTRAVENOUS (IV); COMPARISON: CR XR acute abdomen series [id number] 07/10/2017 12:10 PM RADIATION DOSE METRICS: Total DLP (mGy-cm): 910.43 FINDINGS: Mediastinal space: There is mucosal thickening of the distal esophagus. Liver: Normal. No mass. Gallbladder and bile ducts: Normal. No calcified stones. No ductal dilation. Pancreas: Normal. No ductal dilation. Spleen: Normal. No splenomegaly. Adrenal glands: Normal. No mass. Kidneys and ureters: Normal. No hydronephrosis. Stomach and bowel: There is diverticulosis of the colon without evidence of diverticulitis. Appendix: A normal appendix is identified. Intraperitoneal space: Unremarkable. No free air. No significant fluid collection. Vasculature: Unremarkable. No abdominal aortic aneurysm. Lymph nodes: Unremarkable. No enlarged lymph nodes. Urinary bladder: Unremarkable as visualized. Reproductive: Unremarkable as visualized. Bones/joints: There are degenerative changes in the visualized spine. Soft tissues: Unremarkable. CT/CT abdomen pelvis w con* [id number] IMPRESSION: There is mucosal thickening of the distal esophagus consistent with esophagitis.
--- NOTE | 2022-02-06 13:37 | W.ED.ABDPA2 ---
HPI - Abdominal Pain General: Chief Complaint: Abdominal Pain Stated Complaint: RUQ ABD PAIN Time Seen by Provider: 02/06/22 13:29 Source: patient Mode of arrival: ambulatory Limitations: no limitations History of Present Illness: 62-year-old male states been having right lower quadrant pain since yesterday. States pain has been sharp and is worse and he states pain is currently a 7 out of 10 worse with palpation and movement. Denies any dysuria denies any nausea or vomiting denies any fever denies any radiation of his pain. Associated Symptoms: Denies chills, dysuria and fever(s) Review of Systems Const: Denies: fever(s), chills, body aches or change in appetite Eyes: Denies: blurry vision or eye discomfort ENMT: Denies: throat pain or dental pain Card: Denies: chest pain Resp: Denies: dyspnea GI: Reports: abdominal pain : Denies: dysuria Musc: Denies: neck pain or back pain Skin/Breast: Denies: rash Neuro: Denies: headache(s) Psych: Denies: depression Abel/Lymph: Denies: easy bruising All/Imm: Denies: urticaria PFSH ED PFSH: Medical History Adult onset hypothyroidism CKD (chronic kidney disease) stage 3, GFR 30-59 ml/min Essential hypertension GERD (gastroesophageal reflux disease) Hx of neoplasm neck and tongue left working with [facility] Hyperlipidemia, mixed Insomnia Vitamin D deficiency Surgical History History of tonsillectomy 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 January 2017 Family History Mother Cancer Grandmother Cancer Denies family history of Clotting disorder Social History Smoking and tobacco status: never smoked Second hand smoke exposure: No Smoking risk assessment/counseling performed?: No Alcohol intake: never Desire information about alcohol rehabilitation?: No Counseling given: No Desire information about substance/drug rehabilitation?: No Counseling given: No Adopted: No Caregiver/support person: No Lives independently: Yes Household members: other Housing: House Marital status: Unknown Highest education level completed: Associate Degree: Academic Program service: No Current occupational status: disabled History of recent travel: No Current gender identity: Male Special chris needs: No Physical Exam Const: COMMON NORMALS: no acute distress, patient oriented x3 and healthy appearing HENMT: COMMON NORMALS: normocephalic and atraumatic HEAD & SCALP: normocephalic and atraumatic Eye: COMMON NORMALS: Equal, round and reactive pupils present and EOMs intact bilaterally PUPIL: Yes Equal, round and reactive pupils present Neck/C-Spine: COMMON NORMALS: full ROM and supple Chest: COMMONS NORMALS: normal inspection of the chest and normal palpation of entire chest wall Resp: COMMON NORMALS: normal respiratory effort, No retractions, No use of accessory muscles and clear to auscultation bilaterally AUSCULTATION: clear to auscultation bilaterally Cardio: COMMON NORMALS: regular rate, regular rhythm and No murmurs present (Cardio) RATE: regular rate RHYTHM: regular rhythm GI: COMMON NORMALS: Normal to inspection, nondistended, normoactive bowel sounds present, Soft to palpation and no masses PALPATION: Yes Soft to palpation and Yes Tenderness to palpation present (GI) Details: RLQ Extremity: COMMON NORMALS: normal to inspection and full ROM Neuro: COMMON NORMALS: patient oriented x3, moves all extremities and no focal motor deficits Psych: COMMON NORMALS: mental status grossly normal, Normal thought process present and cooperative THOUGHT PROCESS: Normal thought process present Skin: COMMON NORMALS: no rashes or lesions noted and no wounds GENERAL SKIN EXAM: no rashes or lesions noted Course Vital Signs: Vital signs: Vital Signs Temperature 98.2 F 02/06/22 13:29 Pulse Rate 89 02/06/22 13:29 Respiratory Rate 15 02/06/22 13:55 Blood Pressure 118/72 02/06/22 13:29 Pulse Oximetry 92 02/06/22 13:55 Oxygen Delivery Me thod 02/06/22 13:29 MDM - Abdominal Pain Medical Decision Making Patient presents here with abdominal pain patient's blood work CT here are normal his pain is improved his exam at discharge is benign he is stable for discharge. He is to follow-up with PCP and return if worsening he understands agrees to plan. Lab Data : 02/06/22 13:58 02/06/22 13:58 Labs/Radiology: Radiology Impressions Abdomen/Pelvis CT 02/06/22 13:36 IMPRESSION: There is mucosal thickening of the distal esophagus consistent with esophagitis. Laboratory Results WBC 9.8 10^3/uL (4.0-10.0) 02/06/22 13:58 RBC 4.95 10^6/uL (4.1-5.3) 02/06/22 13:58 Hgb 15.3 g/dL (11.7-16.6) 02/06/22 13:58 Hct 45.5 % (42.0-52.0) 02/06/22 13:58 MCV 91.9 fl (80-94) 02/06/22 13:58 MCH 30.9 pg (28.0-34.0) 02/06/22 13:58 MCHC 33.6 g/dL (30.0-36.0) 02/06/22 13:58 RDW 12.2 % (12.1-15.1) 02/06/22 13:58 Plt Count 267 10^3/cmm (130-400) 02/06/22 13:58 MPV 9.4 fL (7.4-10.4) 02/06/22 13:58 Neut % (Auto) 77.0 % 02/06/22 13:58 Lymph % (Auto) 12.6 % 02/06/22 13:58 [place] % (Auto) 9.3 % 02/06/22 13:58 Eos % (Auto) 0.5 % 02/06/22 13:58 Baso % (Auto) 0.4 % 02/06/22 13:58 Neut # (Auto) 7.55 10^3/uL (1.8-7.7) 02/06/22 13:58 Lymph # (Auto) 1.2 10^3/uL (0.8-4.8) 02/06/22 13:58 [place] # (Auto) 0.9 10^3/uL (0.2-0.9) 02/06/22 13:58 Eos # (Auto) 0.1 10^3/uL (0.0-0.8) 02/06/22 13:58 Baso # (Auto) 0.0 10^3/uL (0.0-0.1) 02/06/22 13:58 Nucleated RBC % (auto) 0 % 02/06/22 13:58 Nucleated RBCs # 0.0 /100WBC 02/06/22 13:58 Sodium 138 mmol/L (136-145) 02/06/22 13:58 Potassium 4.0 mmol/L (3.5-5.1) 02/06/22 13:58 Chloride 102 mmol/L (98-107) 02/06/22 13:58 Carbon Dioxide 25 mmol/L (22-29) 02/06/22 13:58 Anion Gap 15.0 (5-19) 02/06/22 13:58 BUN 20 mg/dL (8-23) 02/06/22 13:58 Creatinine 1.4 mg/dL (0.7-1.2) H 02/06/22 13:58 GFR Calculation 51.4 mL/min (90-130) L 02/06/22 13:58 Glucose 112 mg/dL (65-115) 02/06/22 13:58 Calculated Osmolality 289 mOsm/kg (285-295) 02/06/22 13:58 Calcium 9.1 mg/dL (8.5-10.5) 02/06/22 13:58 Total Bilirubin 0.6 mg/dL (0.15-1.2) 02/06/22 13:58 AST 20 U/L (0-40) 02/06/22 13:58 ALT 18 U/L (0-41) 02/06/22 13:58 Alkaline Phosphatase 59 U/L (40-130) 02/06/22 13:58 Total Protein 7.1 g/dL (6.6-8.7) 02/06/22 13:58 Albumin 4.3 g/dL (3.5-5.2) 02/06/22 13:58 Globulin 2.8 g/dL (1.3-4.6) 02/06/22 13:58 Lipase 39 U/L (13-60) 02/06/22 13:58 Discharge Plan Discharge Patient Disposition: Home Clinical Impression: Abdominal pain Condition: Stable Prescriptions: New ondansetron 4 mg tablet,disintegrating 4 mg PO Q6H PRN (Reason: nausea and vomiting) Qty: 14 0RF No Action aspirin 81 mg tablet,delayed release (DR/EC) 81 mg PO ONCE multivitamin [Daily Multi-Vitamin] Tablet 1 tab PO DAILY glucosamine sulfate 1,000 mg capsule 1,000 mg PO DAILY Rx Instructions: administer with meals cholecalciferol (vitamin D3) 125 mcg (5,000 unit) capsule 5,000 unit PO DAILY albuterol sulfate [ProAir HFA] 90 mcg/actuation HFA aerosol inhaler 2 puff INHALATION QID PRN (Reason: shortness of breath or wheezing) Qty: 18 2RF silver sulfadiazine [Silvadene] 1 % cream 1 applic TOPICAL DAILY Qty: 20 0RF Rx Instructions: apply a 1.5 mm thickness silver sulfadiazine 1 % cream 1 applic topical BID 14 Days Qty: 50 2RF Rx Instructions: apply a 1.5 mm thickness thyroid (pork) [[place] Thyroid] 30 mg tablet 30 mg PO DAILY Qty: 30 2RF amlodipine [Norvasc] 2.5 mg tablet 2.5 mg PO DAILY Qty: 30 2RF Symbicort 160-4.5 mcg/actuation HFA aerosol inhaler 2 puff INHALATION BID Qty: 10.2 2RF Farxiga 10 mg tablet 10 mg PO QAM Qty: 30 2RF rosuvastatin [Crestor] 20 mg tablet 20 mg PO DAILY Qty: 30 2RF hydroxyzine pamoate [Vistaril] 25 mg capsule See Rx Instructions PO BID Qty: 90 2RF Rx Instructions: 1 in AM and 2 PM PO twice a day; icosapent ethyl [Vascepa] 1 gram capsule 2 g PO BID Qty: 120 2RF loratadine [Claritin] 10 mg tablet 10 mg PO DAILY Qty: 30 2RF montelukast [Singulair] 10 mg tablet 10 mg PO DAILY Qty: 30 2RF omeprazole 40 mg capsule,delayed release(DR/EC) 40 mg PO DAILY Qty: 30 2RF valsartan [Diovan] 320 mg tablet 320 mg PO DAILY Qty: 30 2RF triamcinolone acetonide [Nasacort] 55 mcg aerosol,spray 1 spray INTRANASAL BID Qty: 16.9 2RF Repatha SureClick 140 mg/mL pen injector 140 mg SUBCUT .every 14 days Qty: 2 2RF Rx Instructions: use pen please Fish Oil 100-160-1,000 mg capsule PO promethazine-DM 6.25-15 mg/5 mL syrup 5 - 10 ml PO Q6H PRN (Reason: cough) Qty: 200 0RF tramadol 50 mg tablet 50 mg PO Q4H PRN (Reason: pain) Qty: 30 0RF Discharge Orders: Discharge ED (Routine); Ordered 02/06/22 Ordered By: Dee Mora Referrals: Andry Sanabria, [employer] FINISHER-C [Primary Care Provider] - 1-3 days Discharge Diet: Advance as tolerated Discharge Activity: Use walker/crutches as instructed Patient Instructions: Abdominal Pain (ED) Coding Level of Care Code ED [employer] for Chg Fwd Exam Comprehensive
[2022-02-06] MEDS: sodium chloride 0.9% 1,000 ML 999 ML IV (13:55)
[2022-02-06] MEDS: HYDROmorphone 1 mg/mL INJ 1 mL 0.5 MG IVP (13:55)
[2022-02-06] MEDS: ondansetron 2 mg/ML SDV 2 mL 4 MG IVP (13:55)
[2022-02-06 14:03] LABS: Basophils % 0.4 %; Eosinophils # 0.1 10^3/uL (0.0-0.8); Eosinophils % 0.5 %; Hematocrit 45.5 % (42.0-52.0); Hemoglobin 15.3 g/dL (11.7-16.6); Lymphocytes # 1.2 10^3/uL (0.8-4.8); Lymphocytes % 12.6 %; Mean Corpuscular HGB Conc 33.6 g/dL (30.0-36.0); Mean Corpuscular Hemoglobin 30.9 pg (28.0-34.0); Mean Corpuscular Volume 91.9 fl (80-94); Mean Platelet Volume 9.4 fL (7.4-10.4); Monocytes # 0.9 10^3/uL (0.2-0.9); Monocytes % 9.3 %; Neutrophils # 7.55 10^3/uL (1.8-7.7); Nucleated Red Blood Cells % 0 %; Platelet Count 267 10^3/cmm (130-400); Red Blood Count 4.95 10^6/uL (4.1-5.3); Red Cell Distribution Width 12.2 % (12.1-15.1); White Blood Count 9.8 10^3/uL (4.0-10.0)
[2022-02-06 14:22] LABS: Alanine Aminotransferase 18 U/L (0-41); Albumin Level 4.3 g/dL (3.5-5.2); Alkaline Phosphatase 59 U/L (40-130); Aspartate Amino Transferase 20 U/L (0-40); Blood Urea Nitrogen 20 mg/dL (8-23); Calcium 9.1 mg/dL (8.5-10.5); Carbon Dioxide 25 mmol/L (22-29); Chloride 102 mmol/L (98-107); Globulin 2.8 g/dL (1.3-4.6); Glomerular Filtration Rate 51.4 mL/min (90-130); Glucose 112 mg/dL (65-115); Lipase 39 U/L (13-60); Osmolality Calculated 289 mOsm/kg (285-295); Sodium 138 mmol/L (136-145); Total Bilirubin 0.6 mg/dL (0.15-1.2); Total Protein 7.1 g/dL (6.6-8.7)
[2022-02-06] MEDS: iohexol 350 mg/mL 100 mL Btl IV (15:11)
[2022-02-06] MEDS: ondansetron 4 MG Tablet PO (16:01)
== END 2022-02-06 16:07 | disposition home or self-care (01) ==
PROVIDERS: Emergency Provider Emergency Medicine; PCP Nurse Practitioner
DX: R10.9 Unspecified abdominal pain (principal); I12.9 Hypertensive chronic kidney disease with stage 1 through stage 4 chronic kidney disease, or unspecified chronic kidney disease; N18.30 Chronic kidney disease, stage 3 unspecified; E78.2 Mixed hyperlipidemia
CPT/HCPCS: 74177; 80053; 83690; 85025; 96361; 96374; 96375; 99285; J1170; J2405; J7030; Q0162; Q9967

== ENCOUNTER → 2022-02-24 11:20 | Outpatient (BNVA) | payer MEDICAID, SELFPAY | PROVIDERS: PCP Nurse Practitioner Family; Visit Provider Podiatrist Foot & Ankle Surgery | DX: L60.0 Ingrowing nail (principal); L60.3 Nail dystrophy | CPT/HCPCS: 99213 ==

== ENCOUNTER → 2022-04-06 08:51 | Outpatient (BNVA) | payer MEDICAID, SELFPAY | PROVIDERS: PCP Nurse Practitioner Family; Visit Provider Nurse Practitioner Family | DX: E78.2 Mixed hyperlipidemia (principal); I10 Essential (primary) hypertension; E03.8 Other specified hypothyroidism; N18.30 Chronic kidney disease, stage 3 unspecified; K21.9 Gastro-esophageal reflux disease without esophagitis; F41.9 Anxiety disorder, unspecified; F32.9 Major depressive disorder, single episode, unspecified; J44.9 Chronic obstructive pulmonary disease, unspecified | CPT/HCPCS: 80053; 80061; 84443 ==

== ENCOUNTER → 2022-06-07 13:08 | Outpatient (BNVA) | payer MEDICAID, SELFPAY | PROVIDERS: PCP Nurse Practitioner Family; Visit Provider Nurse Practitioner Family | DX: E03.8 Other specified hypothyroidism (principal); N18.30 Chronic kidney disease, stage 3 unspecified; E78.2 Mixed hyperlipidemia; I10 Essential (primary) hypertension; K21.9 Gastro-esophageal reflux disease without esophagitis; J44.9 Chronic obstructive pulmonary disease, unspecified; F41.9 Anxiety disorder, unspecified; F32.9 Major depressive disorder, single episode, unspecified | CPT/HCPCS: 80053; 80061; 84443 ==

== ENCOUNTER → 2022-09-05 09:03 | Outpatient (BNVA) | payer MEDICAID, SELFPAY | PROVIDERS: PCP Nurse Practitioner Family; Visit Provider Nurse Practitioner Family | DX: E03.8 Other specified hypothyroidism (principal); N18.30 Chronic kidney disease, stage 3 unspecified; E78.2 Mixed hyperlipidemia; I10 Essential (primary) hypertension; K21.9 Gastro-esophageal reflux disease without esophagitis; F41.9 Anxiety disorder, unspecified; F32.9 Major depressive disorder, single episode, unspecified; J44.9 Chronic obstructive pulmonary disease, unspecified | CPT/HCPCS: 80053; 80061; 84443 ==

== ENCOUNTER → 2023-03-06 09:42 | Outpatient (BNVA) | payer MEDICAID, SELFPAY | PROVIDERS: PCP Nurse Practitioner Family; Visit Provider Nurse Practitioner Family | DX: E03.8 Other specified hypothyroidism (principal); E78.2 Mixed hyperlipidemia; I10 Essential (primary) hypertension; E55.9 Vitamin D deficiency, unspecified; K21.9 Gastro-esophageal reflux disease without esophagitis; J44.9 Chronic obstructive pulmonary disease, unspecified; F41.9 Anxiety disorder, unspecified; F32.9 Major depressive disorder, single episode, unspecified; N18.30 Chronic kidney disease, stage 3 unspecified | CPT/HCPCS: 80053; 80061; 84443 ==

== ENCOUNTER → 2023-04-03 09:43 | Outpatient (BNVA) | payer MEDICAID, SELFPAY | PROVIDERS: PCP Nurse Practitioner Family; Visit Provider Nurse Practitioner Family | DX: J02.8 Acute pharyngitis due to other specified organisms (principal); B96.89 Other specified bacterial agents as the cause of diseases classified elsewhere; J32.0 Chronic maxillary sinusitis; J06.9 Acute upper respiratory infection, unspecified | CPT/HCPCS: 87486; 87581; 87633 ==

== ENCOUNTER 2023-07-26 07:45 | Outpatient (CLI) | payer MEDICAID, SELFPAY ==
--- NOTE | 2023-07-26 08:00 | CT_ITS ---
WS: [id number] CT scan of the head, 07/26/2023 Clinical Data: new/change in headache unimproved with medication Comparison: None. DLP: 1358.[address] scans at [facility] use at least one of these dose optimization techniques: automated e xposure control; mA and/or kV adjustment per patient size (includes targeted exams where dose is matc hed to clinical indication); or iterative reconstruction. Findings: The ventricular system is minimally dilated without shift. No recent infarct or hemorrhage is seen. T here are no abnormal intracerebral masses. The cerebellum and brainstem are not remarkable. Bony windows of the skull and skull base show no fractures or erosions. There is demineralization of the dorsum sellae. The mastoid air cells, internal auditory canals, sella turcica, intraorbital nikunj nts, and paranasal sinuses are unremarkable. Impression: Minimal cerebral atrophy.
--- NOTE | 2023-07-26 09:00 | CT_ITS ---
WS: [id number] CT CERVICAL SPINE TECHNIQUE: Noncontrast CT of the cervical spine with coronal and sagittal reformatted images. CLINICAL INFORMATION: neck pain, new onset headache COMPARISON: None. DLP: 1358.[address] scans at [facility] use at least one of these dose optimization techniques: automated e xposure control; mA and/or kV adjustment per patient size (includes targeted exams where dose is matc hed to clinical indication); or iterative reconstruction. FINDINGS: Mild spondylitic changes. Mild cervical curve. Disc osteophyte complex worse at C5-6. No acute fractu res. C2-C3: Mild facet arthropathy. Spinal canal and foramina are patent. Surgical clips LEFT neck. C3-C4: Mild disc osteophyte complex with endplate ridging. Mild facet arthropathy. Mild RIGHT foramin al narrowing. C4-C5: Mild disc osteophyte complex with endplate ridging. Moderate facet arthropathy. Mild RIGHT bon y foraminal narrowing. C5-C6: Disc osteophyte complex with endplate ridging. Mild to moderate central canal stenosis with in dentation of the cervical cord. Severe RIGHT greater than LEFT bony foraminal narrowing. Moderate fac et arthropathy with uncovertebral joint hypertrophy. C6-C7: Tiny central protrusion. Spinal canal and foramina are patent. C7-T1: Mild bilateral bony foraminal narrowing. Spinal canal appears patent. Visualized posterior nasopharynx: Normal. Prevertebral soft tissues: Normal. IMPRESSION: 1. Mild spondylitic changes with disc space narrowing worse at C5-6. 2. Disc osteophyte complex C5-C6 with mild to moderate central canal stenosis and slight indentation on the cervical cord. Severe RIGHT greater than LEFT bony foraminal narrowing at this level. Recomme nd further evaluation with MRI cervical spine for better anatomic detail and to evaluate cord signal. 3. Otherwise mild bony foraminal narrowing described above.
== END 2023-07-26 07:46 | disposition home or self-care (01) ==
LOC: RAD 07:45
PROVIDERS: PCP Nurse Practitioner Family; Visit Provider Nurse Practitioner Family
DX: M48.02 Spinal stenosis, cervical region (principal); M47.892 Other spondylosis, cervical region; M25.78 Osteophyte, vertebrae; R51.9 Headache, unspecified; M25.511 Pain in right shoulder; M25.512 Pain in left shoulder
CPT/HCPCS: 70450; 72125

== ENCOUNTER → 2023-08-10 13:18 | Outpatient (BNVA) | payer MEDICAID, SELFPAY | PROVIDERS: PCP Nurse Practitioner Family; Visit Provider Orthopaedic Surgery | DX: M54.2 Cervicalgia (principal) | CPT/HCPCS: 72050; 99204 ==

== ENCOUNTER 2023-08-15 14:08 | Outpatient (CLI) | payer MEDICAID, SELFPAY ==
--- NOTE | 2023-08-15 14:30 | MR_ITS ---
WS: [id number] MRI CERVICAL SPINE with and without contrast HISTORY: cervical pain, history of throat cancer. COMPARISON: Cervical spine radiograph 08/11/2023 Technique: Multiplanar, multisequence noncontrast imaging of the cervical spine. Slight increase in the cervical lordosis. No fractures or marrow edema. C5 retrolisthesis by 2 mm[address] Di sc spaces are very mildly desiccated. Signal within the cervical cord is normal. Visualized posterior fossa is unremarkable. Craniocervical junction, C1 and C2 relationship, odontoid process and soft tissues are normal. C2-C3: Normal. C3-C4: Normal. C4-C5: Mild osteophytic ridging. No high-grade stenosis. Mild bilateral facet arthritis. C5-C6: Diffuse osteophytic ridging and annular disc bulging. Osteophytes encroach upon the ventral th ecal sac. Bilateral paracentral and foraminal disc osteophyte complexes contributing to mild central and moderate bilateral foraminal stenosis. C6-C7: Mild annular disc bulging and facet arthritis. C7-T1: Normal. No discitis or osteomyelitis. No adenopathy. Postsurgical changes are noted along the LEFT neck. IMPRESSION: 1. C5-6: Osteophytic ridging and annular disc bulging resulting in mild central with moderate bilate ral paracentral and foraminal stenosis. Stenosis is predominant due to the osteophytic ridging. 2. Bilateral facet arthritis is mild at C4-5, C5-6 and C6-7. 3. No discitis or osteomyelitis.
[2023-08-15] MEDS: gadobenate dimeglumine 20 mL vial IV (16:04)
== END 2023-08-15 14:09 | disposition home or self-care (01) ==
LOC: RAD 14:09
PROVIDERS: PCP Nurse Practitioner Family; Visit Provider Orthopaedic Surgery
DX: M54.2 Cervicalgia (principal); M48.02 Spinal stenosis, cervical region; M47.812 Spondylosis without myelopathy or radiculopathy, cervical region
CPT/HCPCS: 72156; A9577

== ENCOUNTER → 2023-08-22 14:33 | Outpatient (BNVA) | payer MEDICAID, SELFPAY | PROVIDERS: PCP Nurse Practitioner Family; Visit Provider Orthopaedic Surgery | DX: M47.22 Other spondylosis with radiculopathy, cervical region (principal) | CPT/HCPCS: 99214 ==

== ENCOUNTER → 2023-09-05 08:05 | Outpatient (BNVA) | payer MEDICAID, SELFPAY | PROVIDERS: PCP Nurse Practitioner Family; Visit Provider Nurse Practitioner Family | DX: F41.9 Anxiety disorder, unspecified (principal); F32.9 Major depressive disorder, single episode, unspecified; I10 Essential (primary) hypertension; E78.2 Mixed hyperlipidemia; E03.8 Other specified hypothyroidism; E55.9 Vitamin D deficiency, unspecified; M10.9 Gout, unspecified; R73.9 Hyperglycemia, unspecified; G43.109 Migraine with aura, not intractable, without status migrainosus; N18.30 Chronic kidney disease, stage 3 unspecified; K59.00 Constipation, unspecified; J30.1 Allergic rhinitis due to pollen; K21.9 Gastro-esophageal reflux disease without esophagitis; R11.0 Nausea; J44.9 Chronic obstructive pulmonary disease, unspecified | CPT/HCPCS: 80053; 80061; 83036; 84443; 84550; 85025 ==

== ENCOUNTER → 2023-09-13 08:58 | Outpatient (BNVA) | payer MEDICAID, SELFPAY | PROVIDERS: PCP Nurse Practitioner Family; Referring Provider Orthopaedic Surgery; Visit Provider Anesthesiology Pain Medicine | DX: M47.22 Other spondylosis with radiculopathy, cervical region; R93.7 Abnormal findings on diagnostic imaging of other parts of musculoskeletal system; M48.02 Spinal stenosis, cervical region | CPT/HCPCS: 99204 ==

== ENCOUNTER 2023-12-05 06:03 | Outpatient (CLI) | payer MEDICAID, SELFPAY ==
--- NOTE | 2023-12-05 06:30 | USCV_ITS ---
Heriberto Hinojosa (Khanh) Age: 63 Gender: M : 1960 Exam Date: 12/05/2023 06:22 Ordering Phys: Nba Lozano MD Technologist: [place] [facility] [place]: migranes Risk Factors: Previous Vascular Surgery: Right Brachial BP: / Left Brachial BP: / Right Left Velocity (cm/s) Spectral Plaque Velocity (cm/s) Spectral Plaque Syst/Diast Broadening Syst/Diast Broadening 106.00/ Prox CCA 84.00 / 116.60/ Mid CCA 92.00 / 106.00/ Distal CCA 65.30 / 74.60/ Prox ICA 67.60 / 89.50/ Mid ICA 87.60 / 76.10/ Distal ICA 84.80 / 124.20 ECA 81.30 0.80 ICA/CCA 1.30 Antegrade Vertebral Antegrade 41.70/ 12.00 cm/s 41.60/ 13.00 cm/s Bi Subclavian Bi 79.00 81.10 CONCLUSIONS Right ICA stenosis <50%. Mild atheromatous plaque right carotid bulb/ICA. Left ICA stenosis <50%. Mild atheromatous plaque left carotid bulb/ICA. Normal antegrade Doppler flow noted in the right vertebral artery. Normal antegrade Doppler flow noted in the left vertebral artery. Zoran Hurtado MD (Electronically Signed) Final Date: 05 December 2023 09:47 S
== END 2023-12-05 06:04 | disposition home or self-care (01) ==
PROVIDERS: PCP Nurse Practitioner Family; Visit Provider Psychiatry & Neurology Neurology
DX: G43.111 Migraine with aura, intractable, with status migrainosus (principal); R51.9 Headache, unspecified; F41.9 Anxiety disorder, unspecified; F32.9 Major depressive disorder, single episode, unspecified
CPT/HCPCS: 93880

== ENCOUNTER → 2023-12-11 11:57 | Outpatient (BNVA) | payer MEDICAID, SELFPAY | PROVIDERS: PCP Nurse Practitioner Family; Visit Provider Nurse Practitioner Family | DX: F41.9 Anxiety disorder, unspecified (principal); F32.9 Major depressive disorder, single episode, unspecified; I10 Essential (primary) hypertension; E78.2 Mixed hyperlipidemia; E03.8 Other specified hypothyroidism; R73.9 Hyperglycemia, unspecified; J18.9 Pneumonia, unspecified organism; E55.9 Vitamin D deficiency, unspecified; N18.30 Chronic kidney disease, stage 3 unspecified; M10.9 Gout, unspecified; K59.00 Constipation, unspecified; J30.1 Allergic rhinitis due to pollen; K21.9 Gastro-esophageal reflux disease without esophagitis; R05.9 Cough, unspecified | CPT/HCPCS: 80053; 80061; 83036; 84443; 85025 ==

== ENCOUNTER 2023-12-26 07:39 | Outpatient (CLI) | payer MEDICAID, SELFPAY ==
--- NOTE | 2023-12-26 08:00 | MR_ITS ---
WS: [id number] MRI HEAD WITHOUT CONTRAST TECHNIQUE: Sagittal T1, T2 axial, T2 axial FLAIR, axial and coronal T1 images, axial susceptibility w eighted imaging, axial diffusion weighted images, and coronal T2 images were obtained. CLINICAL INFORMATION: R51.9 - Headache, unspecified. Change in headaches unimproved with medication.. COMPARISON: CT 07/26/2023 FINDINGS: No evidence of restricted diffusion to suggest acute ischemia. Ventricular system and basal cisterns are patent. Normal posterior fossa. Normal vascular flow voids at the skull base. No extra-axial flui d collections. No evidence of mass or mass effect. Mild small vessel changes. Mild parenchymal volume loss. No hemosiderin on the susceptibility weighted images. Paranasal sinuses are well aerated. Mild mucosal thickening in the ethmoid air cells. Mastoid air cells well aerated. Normal optic chiasm and pituitary infundibulum. Temporal lobes and hippocampal formations are normal in appearance. MR/MR head wo con* [id number] IMPRESSION: 1. No evidence of restricted diffusion to suggest acute ischemia. 2. Mild small vessel changes with mild parenchymal volume loss. 3. No hemosiderin on the susceptibility weighted images. 4. No other acute findings.
== END 2023-12-26 07:40 | disposition home or self-care (01) ==
LOC: RAD 07:39
PROVIDERS: PCP Nurse Practitioner Family; Visit Provider Psychiatry & Neurology Neurology
DX: R51.9 Headache, unspecified (principal); M54.2 Cervicalgia; R93.7 Abnormal findings on diagnostic imaging of other parts of musculoskeletal system; M47.22 Other spondylosis with radiculopathy, cervical region
CPT/HCPCS: 70551

== ENCOUNTER 2024-01-22 11:21 | Emergency (ER) | payer MEDICAID, SELFPAY ==
[2024-01-22 11:26] VITALS: BP 139/98; PULSE 96; RESP 18; TEMP 36.9; O2SAT 96
--- NOTE | 2024-01-22 11:28 | ECG_ITS ---
[facility] Test Date: 2024-01-22 Pat Name: Heriberto Hinojosa (David) Department: Room: Gender: Male Vision Mixer: : 1960 Requested By: Dee Mora Order Number: [id number] Elisha MD: Anatoliy Jerez M.D. Measurements Intervals [place] Rate: 111 P: 39 WV: 183 QRS: -13 QRSD: 92 T: 37 QT: 314 QTc: 427 Interpretive Statements SINUS TACHYCARDIA LOW QRS VOLTAGE IN PRECORDIAL LEADS [QRS DEFLECTION < 1.0 mV IN CHEST LEADS] PATTERN CONSISTENT WITH PULMONARY DISEASE SEPTAL MYOCARDIAL INFARCTION , PROBABLY OLD [40+ ms Q WAVE IN V1/V2] INFERIOR MYOCARDIAL INFARCTION , PROBABLY OLD [40+ ms Q WAVE AND/OR ST/T ABNORMALITY IN II/aVF] Compared to ECG 05/27/2018 16:37:00 Myocardial infarct finding now present Sinus rhythm no longer present Electronically Signed On 01-22-2024 11:58:38 CDT by Anatoliy Jerez M.D. [id number]
--- NOTE | 2024-01-22 11:32 | XRR_ITS ---
PROCEDURE INFORMATION: Exam: XR Chest Exam date and time: 01/22/2024 11:45 AM Age: 64 years old Clinical indication: Cough TECHNIQUE: Imaging protocol: Radiologic exam of the chest. Views: 1 view. COMPARISON: CR XR chest 1V portable [id number] 10/01/2021 10:55 AM FINDINGS: Lungs: Unremarkable. No consolidation. Pleural spaces: Unremarkable. No pleural effusion. No pneumothorax. Heart/Mediastinum: Unremarkable. No cardiomegaly. Bones/joints: Unchanged mild scoliosis with mild and moderate multilevel spondylosis. Otherwise, unremarkable. XR/XR chest 1V portable [id number] IMPRESSION: No acute disease.
--- NOTE | 2024-01-22 11:35 | W.ED.COVID ---
HPI - COVID General: Chief Complaint: COVID symptoms Stated Complaint: covid symptoms Time Seen by Provider: 01/22/24 11:32 Source: patient Mode of arrival: ambulatory Limitations: no limitations History of Present Illness: 64-year-old male states that over the last day has been having cough some dyspnea and bodyaches and congestion. He states he had COVID in the past and this feels the same has been around a lot of people at [employer] he states with COVID. He denies any vomiting or diarrhea denies any severe shortness of breath pulse ox here is 95% on room air COVID 19 common symptoms: positive chills, non-productive cough, body aches and nasal congestion; negative fever(s), dyspnea, headache(s), throat pain, nausea, vomiting or diarrhea COVID 19 other sytmptoms: negative chest pain COVID Results: SARS-CoV-2 Antigen (Rapid) positive (Negative) H 01/22/24 11:36 SARS-CoV-2 RNA (RT-PCR) Not detected (NOT DETECTED) 05/28/21 13:49 SARS-CoV-2 (PCR) Not detected (NOT DETECT) 04/03/23 09:43 Coronavirus Type 229E (PCR) Not detected (NOT DETECT) 04/03/23 09:43 Related Data Home Medications Medication Instructions Recorded Confirmed aspirin 81 mg tablet,delayed 81 mg PO ONCE 05/24/19 12/28/23 release multivitamin (Daily Multi-Vitamin 1 tab PO DAILY 11/13/19 12/28/23 tablet) omega 8-fhk-oii-fish oil 100 cap PO 08/17/21 12/28/23 mg-160 mg-1,000 mg capsule (Fish Oil) azelastine 137 mcg (0.1 %) nasal intranasal 11/15/23 12/28/23 spray levocetirizine 5 mg tablet mg PO 11/15/23 12/28/23 blood sugar diagnostic (ResponseTekTouch #10 ea 12/28/23 12/28/23 Ultra Test strips) blood-glucose meter (ResponseTekTouch #1 ea 12/28/23 12/28/23 Ultra2 Meter) lancets 33 gauge (ResponseTekTouch Delica #100 ea 12/28/23 12/28/23 Plus Lancet) Previous Rx's Medication Instructions Recorded budesonide-formoterol HFA 160 2 puff inhalation BID #10.2 grams 01/13/22 mcg-4.5 mcg/actuation aerosol inhaler (Symbicort) epinephrine 0.3 mg/0.3 mL See Rx Instructions .Route 01/02/23 injection, auto-injector .COMPLEX #2 ea albuterol 90 mcg-budesonide 80 2 inh inhalation 6XD PRN shortness 07/12/23 mcg/actuation HFA aerosol inhaler of breath #10.7 grams (Airsupra) blood-glucose meter (Blood Glucose #1 ea 07/31/23 Monitoring kit) prednisone 20 mg tablet See Rx Instructions .Route 08/22/23 .COMPLEX #15 tabs albuterol sulfate 90 mcg/actuation See Rx Instructions .Route 09/01/23 aerosol inhaler (Ventolin HFA) .COMPLEX #18 grams ccqbtbp-kjpbmacwehqcx-tbjujxlz 250 1 tab PO Q6H PRN pain #30 tabs 09/05/23 mg-250 mg-65 mg tablet (Excedrin Migraine) allopurinol 100 mg tablet 100 mg PO DAILY 90 days #90 tabs 12/11/23 amoxicillin 875 mg-potassium 1 tab PO BID 10 days #20 tabs 12/11/23 clavulanate 125 mg tablet cholecalciferol (vitamin D3) 125 5,000 unit PO DAILY 90 days #90 12/11/23 mcg (5,000 unit) capsule caps dapagliflozin propanediol 10 mg 10 mg PO QAM 90 days #90 tabs 12/11/23 tablet (Farxiga) hydroxyzine pamoate 25 mg capsule See Rx Instructions .Route 12/11/23 .COMPLEX #180 caps linaclotide 145 mcg capsule 145 mcg PO DAILY 90 days #90 caps 12/11/23 (Linzess) montelukast 10 mg tablet 10 mg PO DAILY 90 days #90 tabs 12/11/23 (Singulair) omeprazole 40 mg capsule,delayed 40 mg PO DAILY 90 days #90 caps 12/11/23 release promethazine-DM 6.25 mg-15 mg/5 mL 5 ml PO Q6H PRN cough #200 mL 12/11/23 oral syrup rosuvastatin 40 mg tablet (Crestor) 40 mg PO DAILY 90 days #90 tabs 12/11/23 thyroid (pork) 60 mg tablet 60 mg PO DAILY 90 days #90 tabs 12/11/23 ([place] Thyroid) triamcinolone acetonide 55 mcg 1 spray intranasal BID #16.9 mL 12/11/23 nasal spray aerosol (Nasacort) valsartan 320 mg tablet (Diovan) 320 mg PO DAILY 90 days #90 tabs 12/11/23 galcanezumab-gnlm 120 mg/mL 120 mg SUBCUT ONCE #1 mL 12/28/23 subcutaneous pen injector (Emgality Pen) galcanezumab-gnlm 120 mg/mL 240 mg (2 mL) SUBCUT ONCE #2 mL 12/28/23 subcutaneous pen injector (Emgality Pen) ondansetron 4 mg disintegrating 4 mg PO Q6H PRN nausea and 12/28/23 tablet vomiting #90 tabs rimegepant 75 mg disintegrating 75 mg PO ONCE #8 tabs 12/28/23 tablet tizanidine 4 mg tablet 4 mg PO BID PRN muscle spasticity 12/28/23 #60 tabs benzonatate 100 mg capsule See Rx Instructions .Route 01/09/24 .COMPLEX #90 caps nirmatrelvir 300 mg (150 mg See Rx Instructions PO .COMPLEX 01/22/24 x2)-ritonavir 100 mg tablet,dose #30 ea pack (Paxlovid) Allergies Allergy/AdvReac Type Severity Reaction Status Date / Time benzocaine Allergy ADR-Vomitin Verified 12/28/23 08:26 g codeine Allergy ADR-Vomitin Verified 12/28/23 08:26 g hydrocodone Allergy ADR-Vomitin Verified 12/28/23 08:26 g amlodipine AdvReac Mild ADR-Blurry Verified 12/28/23 08:26 Vision Laudanum Allergy ADR-Vomitin Uncoded 12/28/23 08:26 g Review of Systems Const: Reports: chills and body aches; Denies: fever(s) or change in appetite ENMT: Reports: nasal congestion; Denies: throat pain or dental pain Card: Denies: chest pain Resp: Reports: non-productive cough; Denies: dyspnea GI: Denies: abdominal pain, nausea, vomiting or diarrhea Musc: Denies: neck pain or back pain Skin/Breast: Denies: rash Neuro: Denies: headache(s) PFSH ED PFSH: Medical History Adult onset hypothyroidism CKD (chronic kidney disease) stage 3, GFR 30-59 ml/min Hyperlipidemia, mixed Essential hypertension Insomnia Vitamin D deficiency Hx of neoplasm neck and tongue left working with [facility] GERD (gastroesophageal reflux disease) Surgical History 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 January 2017 History of tonsillectomy Family History Mother Cancer Grandmother Cancer Denies family history of Clotting disorder Social History Smoking and tobacco/nicotine status: former use of tobacco/nicotine Second hand smoke exposure: No Alcohol intake: never Substance/Drug Use: never Adopted: No Caregiver/support person: No Lives independently: Yes Household members: other Housing: House Marital status: Unknown Highest education level completed: Associate Degree: Academic Program service: No Current occupational status: disabled Do you think of yourself as: Straight/Heterosexual Current gender identity: Male Special chris needs: No Physical Exam Const: COMMON NORMALS: no acute distress, patient oriented x3 and healthy appearing HENMT: COMMON NORMALS: normocephalic and atraumatic HEAD & SCALP: normocephalic and atraumatic Eye: COMMON NORMALS: Equal, round and reactive pupils present and EOMs intact bilaterally PUPIL: Yes Equal, round and reactive pupils present Neck/C-Spine: COMMON NORMALS: full ROM and supple Chest: COMMONS NORMALS: normal inspection of the chest Resp: COMMON NORMALS: normal respiratory effort, No retractions, No use of accessory muscles and clear to auscultation bilaterally AUSCULTATION: clear to auscultation bilaterally Cardio: COMMON NORMALS: regular rhythm and No murmurs present (Cardio) RATE: tachycardic RHYTHM: regular rhythm GI: COMMON NORMALS: Normal to inspection, nondistended, normoactive bowel sounds present, Soft to palpation, non-tender and no masses PALPATION: Yes Soft to palpation Extremity: COMMON NORMALS: normal to inspection and full ROM Neuro: COMMON NORMALS: patient oriented x3, moves all extremities and no focal motor deficits Psych: COMMON NORMALS: mental status grossly normal, Normal thought process present and cooperative THOUGHT PROCESS: Normal thought process present Skin: COMMON NORMALS: no rashes or lesions noted and no wounds GENERAL SKIN EXAM: no rashes or lesions noted Course Vital Signs: Vital signs: Vital Signs Temperature 98.5 F 01/22/24 11:26 Pulse Rate 96 01/22/24 11:26 Respiratory Rate 18 01/22/24 11:26 Blood Pressure 139/98 01/22/24 11:26 Pulse Oximetry 96 01/22/24 11:38 Oxygen Delivery Me thod Room Air 01/22/24 11:38 MDM - COVID Medical Decision Making Patient presents here with COVID he is in no distress. Chest x-ray shows no pneumonia he is not hypoxic we will prescribe Paxlovid he stable for discharge follow-up with PCP return if worsening Medical Records I reviewed the patient's medical records. Lab Data I reviewed the patient's lab results. 01/22/24 12:11 01/22/24 12:11 Radiology Impressions Chest X-Ray 01/22/24 11:32 IMPRESSION: No acute disease. Laboratory Results WBC 6.64 10^3/uL (3.29-11.43) 01/22/24 12:11 RBC 5.52 10^6/uL (3.85-5.65) 01/22/24 12:11 Hgb 17.30 g/dL (11.27-16.99) H 01/22/24 12:11 Hct 50.0 % (37-53) 01/22/24 12:11 MCV 90.6 fl (82-101) 01/22/24 12:11 MCH 31.3 pg (27-33) 01/22/24 12:11 MCHC 34.6 g/dL (30-55) 01/22/24 12:11 RDW 11.7 % (12.1-15.1) L 01/22/24 12:11 Plt Count 195 10^3/cmm (157-399) 01/22/24 12:11 MPV 9.2 fL (7.4-10.4) 01/22/24 12:11 Neut % (Auto) 76.6 % 01/22/24 12:11 Lymph % (Auto) 8.7 % 01/22/24 12:11 [place] % (Auto) 13.0 % 01/22/24 12:11 Eos % (Auto) 0.9 % 01/22/24 12:11 Baso % (Auto) 0.6 % 01/22/24 12:11 Neut # (Auto) 5.09 10^3/uL (1.8-7.7) 01/22/24 12:11 Lymph # (Auto) 0.6 10^3/uL (0.8-4.8) L 01/22/24 12:11 [place] # (Auto) 0.9 10^3/uL (0.2-0.9) 01/22/24 12:11 Eos # (Auto) 0.1 10^3/uL (0.0-0.8) 01/22/24 12:11 Baso # (Auto) 0.0 10^3/uL (0.0-0.1) 01/22/24 12:11 Nucleated RBC % (auto) 0 % 01/22/24 12:11 Nucleated RBCs # 0.0 /100WBC 01/22/24 12:11 Sodium 140 mmol/L (136-145) 01/22/24 12:11 Potassium 4.2 mmol/L (3.5-5.1) 01/22/24 12:11 Chloride 103 mmol/L (98-107) 01/22/24 12:11 Carbon Dioxide 23 mmol/L (22-29) 01/22/24 12:11 Anion Gap 18.2 (5-19) 01/22/24 12:11 BUN 19 mg/dL (8-23) 01/22/24 12:11 Creatinine 1.1 mg/dL (0.7-1.2) 01/22/24 12:11 GFR Calculation 67.4 mL/min (90-130) L 01/22/24 12:11 Glucose 130 mg/dL (65-115) H 01/22/24 12:11 Calculated Osmolality 294 mOsm/kg (285-295) 01/22/24 12:11 Calcium 9.1 mg/dL (8.5-10.5) 01/22/24 12:11 Total Bilirubin 0.5 mg/dL (0.15-1.2) 01/22/24 12:11 AST 39 U/L (0-40) 01/22/24 12:11 ALT 49 U/L (0-41) H 01/22/24 12:11 Alkaline Phosphatase 84 U/L (40-130) 01/22/24 12:11 Total Protein 7.2 g/dL (6.6-8.7) 01/22/24 12:11 Albumin 4.1 g/dL (3.5-5.2) 01/22/24 12:11 Globulin 3.1 g/dL (1.3-4.6) 01/22/24 12:11 SARS-CoV-2 Ag (Rapid) positive (Negative) H 01/22/24 11:36 SARS-CoV-2 Antigen (Rapid) positive (Negative) H 01/22/24 11:36 SARS-CoV-2 RNA (RT-PCR) Not detected (NOT DETECTED) 05/28/21 13:49 SARS-CoV-2 (PCR) Not detected (NOT DETECT) 04/03/23 09:43 Coronavirus Type 229E (PCR) Not detected (NOT DETECT) 04/03/23 09:43 All radiology interpretation(s) finalized by discharge EKG Data EKG 1: I personally reviewed and interpreted this EKG as follows: EKG interpretation date: 01/22/24 EKG interpretation time: 11:30 Interpretation: sinus tach hr [address] elevation qrs 92 qtc 379 Discharge Plan Discharge Patient Disposition: Home Clinical Impression: COVID-19 Condition: Stable Prescriptions: New Paxlovid 300 mg (150 mg x 2)-100 mg tablets,dose pack See Rx Instructions .ROUTE .COMPLEX Qty: 30 0RF Rx Instructions: take TWO 150 mg tablets of nirmatrelvir with ONE 100 mg tablet of ritonavir twice daily for 5 days No Action aspirin 81 mg tablet,delayed release (DR/EC) 81 mg PO ONCE multivitamin [Daily Multi-Vitamin] Tablet 1 tab PO DAILY Symbicort 160-4.5 mcg/actuation HFA aerosol inhaler 2 puff INHALATION BID Qty: 10.2 2RF Excedrin Migraine 250-250-65 mg tablet 1 tab PO Q6H PRN (Reason: pain) Qty: 30 3RF prednisone 20 mg tablet See Rx Instructions .ROUTE .COMPLEX Qty: 15 0RF Rx Instructions: 60mg daily for 3 days 40mg daily for 2 days 20mg daily for 2 days azelastine 137 mcg (0.1 %) spray,non-aerosol intranasal levocetirizine 5 mg tablet PO (DME) blood-glucose meter [OneTouch Ultra2 Meter[place] [facility] [place]ructions .ROUTE .MEDSUPPLY Qty: 1 Rx Instructions: As directed (DME) OneTouch Ultra Test Strip See Rx Instructions .ROUTE .MEDSUPPLY Qty: 10 Rx Instructions: As directed (DME) lancets [OneTouch Delica Plus Lancet] 33 gauge misc See Rx Instructions .ROUTE .MEDSUPPLY Qty: 100 Rx Instructions: As directed Emgality Pen 120 mg/mL pen injector 240 mg SUBCUT ONCE Qty: 2 0RF Rx Instructions: loading dose rimegepant 75 mg tablet,disintegrating 75 mg PO ONCE Qty: 8 5RF ondansetron 4 mg tablet,disintegrating 4 mg PO Q6H PRN (Reason: nausea and vomiting) Qty: 90 0RF tizanidine 4 mg tablet 4 mg PO BID PRN (Reason: muscle spasticity) Qty: 60 3RF Rx Instructions: take 1-2 at bedtime Emgality Pen 120 mg/mL pen injector 120 mg SUBCUT ONCE Qty: 1 6RF Fish Oil 100-160-1,000 mg capsule PO Airsupra 90-80 mcg/actuation HFA aerosol inhaler 2 inh inhalation 6XD PRN (Reason: shortness of breath) Qty: 10.7 11RF cholecalciferol (vitamin D3) 125 mcg (5,000 unit) capsule 5,000 unit PO DAILY 90 Days Qty: 90 1RF Farxiga 10 mg tablet 10 mg PO QAM 90 Days Qty: 90 1RF allopurinol 100 mg tablet 100 mg PO DAILY 90 Days Qty: 90 1RF hydroxyzine pamoate 25 mg capsule See Rx Instructions .ROUTE .COMPLEX Qty: 180 1RF Dose Instruction: TAKE ONE CAPSULE BY MOUTH IN THE MORNING AND TAKE TWO CAPSULES IN THE EVENING. Rx Instructions: TAKE ONE CAPSULE BY MOUTH IN THE MORNING AND TAKE TWO CAPSULES IN THE EVENING. Linzess 145 mcg capsule 145 mcg PO DAILY 90 Days Qty: 90 1RF montelukast [Singulair] 10 mg tablet 10 mg PO DAILY 90 Days Qty: 90 1RF omeprazole 40 mg capsule,delayed release(DR/EC) 40 mg PO DAILY 90 Days Qty: 90 1RF rosuvastatin [Crestor] 40 mg tablet 40 mg PO DAILY 90 Days Qty: 90 0RF thyroid (pork) [[place] Thyroid] 60 mg tablet 60 mg PO DAILY 90 Days Qty: 90 1RF triamcinolone acetonide [Nasacort] 55 mcg aerosol,spray 1 spray INTRANASAL BID Qty: 16.9 2RF valsartan [Diovan] 320 mg tablet 320 mg PO DAILY 90 Days Qty: 90 1RF promethazine-DM 6.25-15 mg/5 mL syrup 5 ml PO Q6H PRN (Reason: cough) Qty: 200 0RF amoxicillin-pot clavulanate 875-125 mg tablet 1 tab PO BID 10 Days Qty: 20 0RF epinephrine 0.3 mg/0.3 mL auto-injector See Rx Instructions .ROUTE .COMPLEX Qty: 2 1RF Dose Instruction: INJECT 0.3ml INTRAMUSCULARLY EVERY 4 HOURS NEEDED FOR anaphlyaxis. Rx Instructions: INJECT 0.3ml INTRAMUSCULARLY EVERY 4 HOURS NEEDED FOR anaphlyaxis. (DME) blood-glucose meter [Blood Glucose Monitoring] Kit See Rx Instructions .Route Qty: 1 0RF Rx Instructions: As directed albuterol sulfate [Ventolin HFA] 90 mcg/actuation HFA aerosol inhaler See Rx Instructions .ROUTE .COMPLEX Qty: 18 2RF Dose Instruction: INHALE TWO PUFFS BY MOUTH FOUR TIMES DAILY NEEDED FOR SHORTNESS OF BREATH OR wheezing Rx Instructions: INHALE TWO PUFFS BY MOUTH FOUR TIMES DAILY NEEDED FOR SHORTNESS OF BREATH OR wheezing benzonatate 100 mg capsule See Rx Instructions .ROUTE .COMPLEX Qty: 90 0RF Dose Instruction: TAKE ONE CAPSULE BY MOUTH THREE TIMES DAILY NEEDED FOR COUGH Rx Instructions: TAKE ONE CAPSULE BY MOUTH THREE TIMES DAILY NEEDED FOR COUGH Discharge Orders: Discharge ED (Routine); Ordered 01/22/24 Ordered By: Dee Mora Referrals: Selena Tinoco NP [Primary Care Provider] - 4-7 days Discharge Diet: Advance as tolerated Discharge Activity: Resume usual activity Patient Instructions: COVID-19 (Coronavirus Disease 2019) (ED) Coding Level of Care Code ED Wrapper Sorter for Nirali Farrell
[2024-01-22 11:38] VITALS: O2SAT 96
[2024-01-22] MEDS: sodium chloride 0.9% 1,000 ML 999 ML IV (12:02)
[2024-01-22 12:15] LABS: Basophils % 0.6 %; Eosinophils # 0.1 10^3/uL (0.0-0.8); Eosinophils % 0.9 %; Lymphocytes # 0.6 10^3/uL (0.8-4.8); Lymphocytes % 8.7 %; Mean Corpuscular HGB Conc 34.6 g/dL (30-55); Mean Corpuscular Hemoglobin 31.3 pg (27-33); Mean Corpuscular Volume 90.6 fl (82-101); Mean Platelet Volume 9.2 fL (7.4-10.4); Monocytes # 0.9 10^3/uL (0.2-0.9); Neutrophils # 5.09 10^3/uL (1.8-7.7); Neutrophils % 76.6 %; Nucleated Red Blood Cells % 0 %; Platelet Count 195 10^3/cmm (157-399); Red Blood Count 5.52 10^6/uL (3.85-5.65); Red Cell Distribution Width 11.7 % (12.1-15.1); White Blood Count 6.64 10^3/uL (3.29-11.43)
[2024-01-22 12:19] LABS: SARS Covid-2 Antigen positive (Negative)
[2024-01-22 12:40] LABS: Alanine Aminotransferase 49 U/L (0-41); Albumin Level 4.1 g/dL (3.5-5.2); Alkaline Phosphatase 84 U/L (40-130); Anion Gap 18.2 (5-19); Aspartate Amino Transferase 39 U/L (0-40); Blood Urea Nitrogen 19 mg/dL (8-23); Calcium 9.1 mg/dL (8.5-10.5); Carbon Dioxide 23 mmol/L (22-29); Chloride 103 mmol/L (98-107); Globulin 3.1 g/dL (1.3-4.6); Glomerular Filtration Rate 67.4 mL/min (90-130); Glucose 130 mg/dL (65-115); Osmolality Calculated 294 mOsm/kg (285-295); Potassium 4.2 mmol/L (3.5-5.1); Sodium 140 mmol/L (136-145); Total Bilirubin 0.5 mg/dL (0.15-1.2); Total Protein 7.2 g/dL (6.6-8.7)
[2024-01-22 12:50] VITALS: BP 132/89; PULSE 90; RESP 20; O2SAT 97
[2024-01-22] MEDS: dexamethasone 10 mg/mL INJ IVP (12:50)
== END 2024-01-22 12:53 | disposition home or self-care (01) ==
PROVIDERS: Emergency Provider Emergency Medicine; PCP Nurse Practitioner Family
DX: U07.1 COVID-19 (principal); I12.9 Hypertensive chronic kidney disease with stage 1 through stage 4 chronic kidney disease, or unspecified chronic kidney disease; N18.30 Chronic kidney disease, stage 3 unspecified; E78.2 Mixed hyperlipidemia; Z85.810 Personal history of malignant neoplasm of tongue; Z85.89 Personal history of malignant neoplasm of other organs and systems; Z87.891 Personal history of nicotine dependence
CPT/HCPCS: 36415; 71045; 80053; 85025; 87426; 93005; 96361; 96374; 99285; J1100; J7030

== ENCOUNTER → 2024-02-07 15:04 | Outpatient (BNVA) | payer MEDICAID, SELFPAY | PROVIDERS: PCP Nurse Practitioner Family; Visit Provider Nurse Practitioner Family | DX: R53.83 Other fatigue (principal); R63.5 Abnormal weight gain | CPT/HCPCS: 84402; 84403 ==

== ENCOUNTER → 2024-04-12 11:15 | Outpatient (BNVA) | payer MEDICAID, SELFPAY | PROVIDERS: PCP Nurse Practitioner Family; Visit Provider Nurse Practitioner Family | DX: E55.9 Vitamin D deficiency, unspecified; R73.9 Hyperglycemia, unspecified; M10.9 Gout, unspecified; J44.9 Chronic obstructive pulmonary disease, unspecified; I10 Essential (primary) hypertension; E03.8 Other specified hypothyroidism; E78.2 Mixed hyperlipidemia; K21.9 Gastro-esophageal reflux disease without esophagitis; J30.1 Allergic rhinitis due to pollen; K59.00 Constipation, unspecified; F41.9 Anxiety disorder, unspecified; F32.9 Major depressive disorder, single episode, unspecified; N18.30 Chronic kidney disease, stage 3 unspecified | CPT/HCPCS: 80053; 80061; 82306; 82607; 83036; 84403; 84443; 84550; 85025; G0103 ==

== ENCOUNTER → 2024-05-07 09:48 | Outpatient (BNVA) | payer MEDICAID, SELFPAY | PROVIDERS: PCP Nurse Practitioner Family; Visit Provider Nurse Practitioner Family | DX: E78.2 Mixed hyperlipidemia (principal) | CPT/HCPCS: 85025 ==

== ENCOUNTER → 2024-06-24 08:28 | Outpatient (BNVA) | payer MEDICAID, SELFPAY | PROVIDERS: PCP Nurse Practitioner Family; Visit Provider Nurse Practitioner Family | DX: J40 Bronchitis, not specified as acute or chronic (principal); R50.9 Fever, unspecified; R11.0 Nausea | CPT/HCPCS: 87400; 87426 ==

== ENCOUNTER 2024-08-20 20:00 | Outpatient (CLI) | payer MEDICAID, SELFPAY | END 2024-08-20 20:01 | disposition home or self-care (01) | LOC: SLEEP 23:19 | PROVIDERS: PCP Nurse Practitioner Family; Visit Provider Internal Medicine | DX: G47.33 Obstructive sleep apnea (adult) (pediatric) (principal); G47.36 Sleep related hypoventilation in conditions classified elsewhere | CPT/HCPCS: 95810 ==

== ENCOUNTER 2024-08-21 08:15 | Oncology outpatient (recurring) (ONCR) | payer MEDICAID, SELFPAY ==
[2024-08-21 07:48] LABS: Basophils # 0.1 10^3/uL (0.0-0.1); Basophils % 0.8 %; Eosinophils # 0.1 10^3/uL (0.0-0.8); Hematocrit 49.5 % (37-53); Lymphocytes # 1.2 10^3/uL (0.8-4.8); Mean Corpuscular HGB Conc 35.2 g/dL (30-55); Mean Corpuscular Volume 88.2 fl (82-101); Mean Platelet Volume 9.3 fL (7.4-10.4); Monocytes # 0.6 10^3/uL (0.2-0.9); Monocytes % 9.6 %; Neutrophils # 4.07 10^3/uL (1.8-7.7); Neutrophils % 67.3 %; Nucleated Red Blood Cells % 0 %; Platelet Count 240 10^3/cmm (157-399); Red Blood Count 5.61 10^6/uL (3.85-5.65); Red Cell Distribution Width 11.9 % (12.1-15.1); White Blood Count 6.05 10^3/uL (3.29-11.43)
[2024-08-21 08:19] LABS: Chol HDL Ratio 3.49 mg/dL (1.0-5.00); Cholesterol 136 mg/dL (0-200); Follicle Stimulating Hormone 3.6 mIU/mL (1.5-12.4); HDL Cholesterol 39 mg/dL (60-100); LDL Cholesterol Calculated 45 mg/dL (50-129); LDL HDL Ratio 1.15 RATIO (0.00-3.22); Luteinizing Hormone 5.3 mIU/mL (1.7-8.6); Prolactin 10.42 ng/mL (4.0-15.2); Triglycerides 261 mg/dL (0-150)
[2024-08-21 08:44] LABS: Testosterone Total 179.7 ng/dL (193-740)
[2024-08-28 15:57] LABS: CALR Exon 9 Mutation NOT DETECTED (NOT DETECTED); JAK2 Exon 12 Mutation NOT DETECTED (NOT DETECTED); JAK2 V617 Clinical Indication polycythemia vera; JAK2 V617 Mutation NOT DETECTED (NOT DETECTED); MPL Exon 10 Mutation NOT DETECTED (NOT DETECTED); Specimen Source blood
== END 2024-09-18 23:59 | disposition home or self-care (01) ==
PROVIDERS: Internal Medicine; PCP Nurse Practitioner Family; Visit Provider Internal Medicine Medical Oncology
DX: R53.83 Other fatigue (principal); E78.2 Mixed hyperlipidemia; R71.8 Other abnormality of red blood cells; R79.89 Other specified abnormal findings of blood chemistry; D45 Polycythemia vera
CPT/HCPCS: 36415; 80061; 81219; 81270; 81279; 81339; 83001; 83002; 84146; 84403; 85025

== ENCOUNTER 2024-10-18 09:37 | Oncology outpatient (recurring) (ONCR) | payer MEDICAID, SELFPAY ==
[2024-10-18 10:03] VITALS: BP 146/92; PULSE 80; RESP 16; TEMP 36.2; O2SAT 95
[2024-10-18 10:38] VITALS: BP 135/92; PULSE 91
== END 2024-10-19 23:59 | disposition home or self-care (01) ==
LOC: ONCMED 09:37
PROVIDERS: PCP Nurse Practitioner Family; Visit Provider Internal Medicine Medical Oncology
DX: R71.8 Other abnormality of red blood cells (principal)
CPT/HCPCS: 99195

== ENCOUNTER → 2025-01-23 08:36 | Outpatient (BNVA) | payer MEDICARE, MEDICAID, SELFPAY | PROVIDERS: PCP Nurse Practitioner Family; Visit Provider Orthopaedic Surgery | DX: M54.2 Cervicalgia (principal); M48.02 Spinal stenosis, cervical region | CPT/HCPCS: 72050; 99213 ==

== ENCOUNTER 2025-02-05 00:05 | Emergency (ER) | payer MEDICARE, MEDICAID, SELFPAY ==
[2025-02-05 00:32] VITALS: BP 152/102; PULSE 62; RESP 16; TEMP 37; O2SAT 96
--- NOTE | 2025-02-05 00:42 | ED_ITS ---
HPI - Ear Problem General: Chief complaint: Ear Stated complaint: Bug in RT ear Time Seen by Provider: 02/05/25 00:08 History of Present Illness: 65-year-old man presents emergency room with complaints of ear pain and thinks there is a bug in his ear. He felt it moving around. He had tried some peroxide and rolling over which did not work. No hearing loss. Related Data Home Medications ?Medication ?Instructions ?Recorded ?Confirmed aspirin 81 mg tablet,delayed 81 mg PO ONCE 05/24/19 release multivitamin (Daily Multi-Vitamin 1 tab PO DAILY 11/1201/23/25 tablet) azelastine 137 mcg (0.1 %) nasal intranasal 11/15/23 0 01/23/25 spray blood sugar diagnostic ([employer]Touch #10 ea 12/28/2301/23 Ultra Test strips) blood-glucose meter ([employer]Touch #1 ea 12/28/23 01/23/25 Ultra2 Meter) lancets 33 gauge (OneTouch Delica #100 ea 12/28/2309/13 Plus Lancet) silver sulfadiazine 1 % topical See Rx Instructions .R oute 08/20/24 01/23/25 cream (SSD) .COMPLEX PRN Previous Rx's ?Medication ?Instructions ?Recorded epinephrine 0.3 mg/0.3 mL See Rx Instructions .Route 0 01/02/23 injection, auto-injector .COMPLEX #2 ea blood-glucose meter (Blood Glucose #1 ea 07/31/23 Monitoring kit) cxaqhch-gxmqwxfapkauv-oxcxlurc 250 1 tab PO Q6H PRN pa in #30 tabs 09/05/23 mg-250 mg-65 mg tablet (Excedrin Migraine) cholecalciferol (vitamin D3) 125 5,000 unit PO DAILY 9 0 days #90 12/11/23 mcg (5,000 unit) capsule caps triamcinolone acetonide 55 mcg 1 spray intranasal BID #16.9 mL 12/11/23 nasal spray aerosol (Nasacort) tizanidine 4 mg tablet 4 mg PO BID PRN muscle spast icity 12/28/23 #60 tabs budesonide-formoterol HFA 160 2 puff inhalation BID #1 0.2 grams 04/12/24 mcg-4.5 mcg/actuation aerosol inhaler (Symbicort) linaclotide 145 mcg capsule 145 mcg PO DAILY 90 days # 90 caps 04/12/24 (Linzess) rimegepant 75 mg disintegrating 75 mg PO .COMPLEX #16 tabs 07/31/24 tablet (Nurtec ODT) ondansetron 4 mg disintegrating 4 mg PO Q6H PRN nausea and 08/09/24 tablet vomiting #30 tabs fremanezumab-vfrm 225 mg/1.5 mL 225 mg (1.5 mL) SUBCUT Q30D #1.5 mL 09/04/24 subcutaneous auto-injector (Ajovy) allopurinol 100 mg tablet 100 mg PO DAILY 90 days #90 tabs 10/03/24 auto-titrating cpap 6-16cm #1 ea 10/03/24 dapagliflozin propanediol 10 mg 10 mg PO QAM 90 days # 90 tabs 10/03/24 tablet (Farxiga) levocetirizine 5 mg tablet 5 mg PO DAILY #90 tabs 09/19 10/13 montelukast 10 mg tablet 10 mg PO DAILY 90 days #90 t abs 10/03/24 (Singulair) omeprazole 40 mg capsule,delayed 40 mg PO DAILY 90 day s #90 caps 10/03/24 release rosuvastatin 40 mg tablet (Crestor) 40 mg PO DAILY 30 days #90 tabs 10/03/24 valsartan 320 mg tablet (Diovan) 320 mg PO DAILY 90 da ys #90 tabs 10/03/24 hydroxyzine pamoate 25 mg capsule See Rx Instructions .Route 12/01/24 .COMPLEX #180 caps thyroid (pork) 90 mg tablet See Rx Instructions .Route 12/25/24 ([place] Thyroid) .COMPLEX #90 tabs azithromycin 250 mg tablet See Rx Instructions PO .COM PLEX #6 01/02/25 tabs tqblzfpr-sxflzt-ON-thonzonm 3.3 4 drp otic (ear) TID # 10 mL 02/05/25 mg-3 mg-10 mg-0.5 mg/mL ear drops,susp (Cortisporin-TC) Allergies Allergy/AdvReac Type Severity Reaction Status Date / Time benzocaine Allergy ADR-Vomitin Verified 01/23/25 07:36 g codeine Allergy ADR-Vomitin Verified 01/23/25 07:36 g hydrocodone Allergy ADR-Vomitin Verified 01/23/25 07:36 g opium tincture Allergy Unknown Verified 01/23/25 07:36 amlodipine AdvReac Mild ADR-Blurry Verified 01/23/25 07:36 Vision Review of Systems Narrative: Constitutional symptoms: Negative except as documented in HPI. Skin symptoms: Negative except as documented in HPI. Eye symptoms: Negative except as documented in HPI. ENMT symptoms: Negative except as documented in HPI. Respiratory symptoms: Negative except as documented in HPI. Cardiovascular symptoms: Negative except as documented in HPI. Gastrointestinal symptoms: Negative except as documented in HPI. Genitourinary symptoms: Negative except as documented in HPI. Musculoskeletal symptoms: Negative except as documented in HPI. Neurologic symptoms: Negative except as documented in HPI. Psychiatric symptoms: Negative except as documented in HPI. Endocrine symptoms: Negative except as documented in HPI. PFSH ED PFSH: Medical History (Updated 02/05/25 @ 01:03 by Kaylee De La Rosa MD) Adult onset hypothyroidism CKD (chronic kidney disease) stage 3, GFR 30-59 ml/min Hyperlipidemia, mixed Essential hypertension Insomnia Vitamin D deficiency Hx of neoplasm neck and tongue left working with [facility] oncology GERD (gastroesophageal reflux disease) Surgical History 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 January 2017 History of tonsillectomy Family History Mother Cancer Grandmother Cancer Denies family history of Clotting disorder Social History Smoking and tobacco/nicotine status: unknown if used tobacco/nicotine Second hand smoke exposure: No Alcohol intake: never Substance/Drug Use: never Adopted: No Caregiver/support person: No Lives independently: Yes Household members: other Housing: House Marital status: Unknown Highest education level completed: Associate Degree: Academic Program service: No Current occupational status: disabled Do you think of yourself as: Straight/Heterosexual Current gender identity: Male Special chris needs: No Physical Exam Narrative: EXAM NARRATIVE: General: Alert, no acute distress. Skin: warm and dry Head: Normocephalic Neck: Trachea midline Eye: Extraocular movements are intact. Ears, nose, mouth and throat: Oral mucosa moist. Right ear canal. There does appear to be a foreign body which may be an insect. Difficult to say. There does appear to have been some trauma from the Q-tip he had used earlier. Small amount of blood. Respiratory: Respirations are non-labored Musculoskeletal: Normal ROM Gastrointestinal: Abdomen does not appear distended Neurological: Alert and oriented, No focal neurological deficit observed. Psychiatric: Cooperative, appropriate mood & affect. Course Vital Signs: Vital signs: Vital Signs Temperature 98.6 F 02/05/25 00:32 Pulse Rate 62 02/05/25 00:32 Respiratory Rate 16 02/05/25 00:32 Blood Pressure 152/102 02/05/25 00:32 Pulse Oximetry 96 02/05/25 00:32 Oxygen Delivery Me thod Room Air 02/05/25 00:32 MDM - Ear Medical Decision Making I irrigated the patient's ear several times with saline. He still had some discomfort. I did see some fragments in the washout. He had also had some trauma as there was some mild bleeding around the eardrum. Ultimately I placed some lidocaine in the ear and as best I can tell everything is removed from the ear. He will follow with Dr. Blandon if he continues to have discomfort. Assessment and plan: Foreign body in the ear - Discharged home - Discussed plan with patient. Answered any questions. - Evaluation and treatment of this problem were appropriate in the emergency setting. No radiology studies performed this visit Discharge Plan Discharge Patient Disposition: Home Clinical Impression: Foreign body in ear Condition: Stable Prescriptions: New Cortisporin-TC 3.3-3-10-0.5 mg/mL drops,suspension 4 drp otic (ear) TID Qty: 10 0RF No Action aspirin 81 mg tablet,delayed release (DR/EC) 81 mg PO ONCE multivitamin [Daily Multi-Vitamin] Tablet 1 tab PO DAILY Excedrin Migraine 250-250-65 mg tablet 1 tab PO Q6H PRN (Reason: pain) Qty: 30 3RF azelastine 137 mcg (0.1 %) spray,non-aerosol intranasal (DME) blood-glucose meter [OneTouch Ultra2 Meter] Misc See Rx Instructions .ROUTE .MEDSUPPLY Qty: 1 Rx Instructions: As directed (DME) OneTouch Ultra Test Strip See Rx Instructions .ROUTE .MEDSUPPLY Qty: 10 Rx Instructions: As directed (DME) lancets [OneTouch Delica Plus Lancet] 33 gauge misc See Rx Instructions .ROUTE .MEDSUPPLY Qty: 100 Rx Instructions: As directed tizanidine 4 mg tablet 4 mg PO BID PRN (Reason: muscle spasticity) Qty: 60 3RF Rx Instructions: take 1-2 at bedtime silver sulfadiazine [SSD] 1 % cream See Rx Instructions .ROUTE .COMPLEX PRN Dose Instruction: APPLY 1.5MM THICKNES TOPICALLY TWICE DAILY Rx Instructions: APPLY 1.5MM THICKNES TOPICALLY TWICE DAILY PRN; (DME) auto-titrating cpap 6-16cm See Rx Instructions .Route .MEDSUPPLY Qty: 1 0RF Rx Instructions: As directed azithromycin 250 mg tablet See Rx Instructions PO .COMPLEX Qty: 6 0RF Rx Instructions: For 250 mg dose pack: take 500 mg today (day 1), then 250 mg for 4 days (days 2-5) PO cholecalciferol (vitamin D3) 125 mcg (5,000 unit) capsule 5,000 unit PO DAILY 90 Days Qty: 90 1RF triamcinolone acetonide [Nasacort] 55 mcg aerosol,spray 1 spray INTRANASAL BID Qty: 16.9 2RF budesonide-formoterol [Symbicort] 160-4.5 mcg/actuation HFA aerosol inhaler 2 puff INHALATION BID Qty: 10.2 5RF Linzess 145 mcg capsule 145 mcg PO DAILY 90 Days Qty: 90 1RF epinephrine 0.3 mg/0.3 mL auto-injector See Rx Instructions .ROUTE .COMPLEX Qty: 2 1RF Dose Instruction: INJECT 0.3ml INTRAMUSCULARLY EVERY 4 HOURS NEEDED FOR anaphlyaxis. Rx Instructions: INJECT 0.3ml INTRAMUSCULARLY EVERY 4 HOURS NEEDED FOR anaphlyaxis. (DME) blood-glucose meter [Blood Glucose Monitoring] Kit See Rx Instructions .Route Qty: 1 0RF Rx Instructions: As directed Nurtec ODT 75 mg tablet,disintegrating 75 mg PO .COMPLEX Qty: 16 5RF Rx Instructions: 75 mg orally; Dissolve one tablet by mouth once as needed for migraine headache. Do not take more than one tablet per 24 hours ondansetron 4 mg tablet,disintegrating 4 mg PO Q6H PRN (Reason: nausea and vomiting) Qty: 30 0RF Ajovy Autoinjector 225 mg/1.5 mL auto-injector 225 mg SUBCUT Q30D Qty: 1.5 5RF valsartan [Diovan] 320 mg tablet 320 mg PO DAILY 90 Days Qty: 90 1RF omeprazole 40 mg capsule,delayed release(DR/EC) 40 mg PO DAILY 90 Days Qty: 90 1RF allopurinol 100 mg tablet 100 mg PO DAILY 90 Days Qty: 90 1RF montelukast [Singulair] 10 mg tablet 10 mg PO DAILY 90 Days Qty: 90 1RF Farxiga 10 mg tablet 10 mg PO QAM 90 Days Qty: 90 1RF rosuvastatin [Crestor] 40 mg tablet 40 mg PO DAILY 30 Days Qty: 90 1RF levocetirizine 5 mg tablet 5 mg PO DAILY Qty: 90 1RF hydroxyzine pamoate 25 mg capsule See Rx Instructions .ROUTE .COMPLEX Qty: 180 1RF Dose Instruction: TAKE ONE CAPSULE BY MOUTH IN THE MORNING AND TAKE TWO CAPSULES IN THE EVENING Rx Instructions: TAKE ONE CAPSULE BY MOUTH IN THE MORNING AND TAKE TWO CAPSULES IN THE EVENING thyroid (pork) [[place] Thyroid] 90 mg tablet See Rx Instructions .ROUTE .COMPLEX Qty: 90 0RF Dose Instruction: TAKE ONE TABLET BY MOUTH DAILY Rx Instructions: TAKE ONE TABLET BY MOUTH DAILY Discharge Orders: Discharge ED (Routine); Ordered 02/05/25 Ordered By: Kaylee De La Rosa Referrals: Bernabe Douglas MD [Physician, Ear, Nose, Throat] - 1-3 days Referral Note: Call for appointment if you continue to have ear discomfort Mar Dominguez FNP [Primary Care Provider, Family Practice] Discharge Diet: Usual diet Discharge Activity: Increase activity as tolerated Patient Instructions: Ear Foreign Body (ED), Opioid Safety, Pain Management, Patient Portal & Shanika Instructions Activity Restrictions/Additional Instructions: Thank you for choosing [facility] for your healthcare needs today. You have been screened and evaluated and felt safe for discharge. Health conditions do change or evolve sometimes and as such it is important that you follow up with your Primary Doctor to be re checked, 3-5 days is a general good time frame for follow up. You are always welcome to return to the ED for re assessment if your symptoms are worsening or you have new concerns Print Language: Maltese Coding Level of Care Code ED Homogenizer Operator for Nirali Farrell
[2025-02-05 02:20] VITALS: BP 151/96; PULSE 62; RESP 17; O2SAT 96
== END 2025-02-05 02:21 | disposition home or self-care (01) ==
PROVIDERS: Emergency Provider Emergency Medicine; PCP Nurse Practitioner Family
DX: T16.1XXA Foreign body in right ear, initial encounter (principal); W44.9XXA Unspecified foreign body entering into or through a natural orifice, initial encounter; Z79.82 Long term (current) use of aspirin; Z85.810 Personal history of malignant neoplasm of tongue; Z85.89 Personal history of malignant neoplasm of other organs and systems; I12.9 Hypertensive chronic kidney disease with stage 1 through stage 4 chronic kidney disease, or unspecified chronic kidney disease; N18.30 Chronic kidney disease, stage 3 unspecified; E78.2 Mixed hyperlipidemia
CPT/HCPCS: 99283; J9999

== ENCOUNTER 2025-02-06 08:03 | Outpatient (CLI) | payer MEDICARE, MEDICAID, SELFPAY ==
--- NOTE | 2025-02-06 09:30 | MR_ITS ---
WS: [id number] MRI CERVICAL SPINE NONCONTRAST TECHNIQUE: Sagittal T1, T2 and STIR imaging. Axial T2, gradient, and fiesta imaging. CLINICAL INFORMATION: Neck pain COMPARISON: MRI 08/15/2023 FINDINGS: Exaggeration of the normal cervical lordosis. Small disc osteophyte protrusions C5-C6 and C6-C7 similar to previous. C2-C3: Normal. C3-C4: Mild facet arthropathy. Mild bilateral bony foraminal narrowing. C4-C5: LEFT facet synovitis with fluid and edema. Mild bilateral bony foraminal narrowing. Moderate facet arthropathy. Mild central canal stenosis. C5-C6: Central disc osteophyte protrusion with indentation on the cervical cord. Moderate central canal stenosis. Severe bilateral foraminal narrowing. Moderate facet arthropathy. C6-C7: Shallow central disc osteophyte protrusion with indentation of the cervical cord. Moderate LEFT greater than RIGHT bony foraminal narrowing. Moderate facet arthropathy. C7-T1: Grade 1 anterolisthesis. Mild LEFT greater than RIGHT bony foraminal narrowing. Visualized brain stem structures: Normal. Prevertebral soft tissues: Normal. MR/MR cervical spin wo con* [id number] IMPRESSION: 1. Moderate central canal stenosis C5-C6 and mild stenosis C6-7 with central d isc osteophyte protrusions. This appears stable compared to previous. 2. LEFT C4-5 facet synovitis with associated edema. This is likely degenerativ e or inflammatory. 3. Severe bilateral C5-C6 bony foraminal narrowing appears stable. 4. Moderate LEFT greater than RIGHT C6-7 bony foraminal narrowing.
== END 2025-02-06 08:04 | disposition home or self-care (01) ==
LOC: RAD 08:03
PROVIDERS: PCP Nurse Practitioner Family; Visit Provider Orthopaedic Surgery
DX: M48.02 Spinal stenosis, cervical region (principal); M25.78 Osteophyte, vertebrae; M65.98 Unspecified synovitis and tenosynovitis, other site; M47.812 Spondylosis without myelopathy or radiculopathy, cervical region
CPT/HCPCS: 72141

== ENCOUNTER → 2025-02-14 10:06 | Outpatient (BNVA) | payer MEDICARE, MEDICAID, SELFPAY | PROVIDERS: PCP Nurse Practitioner Family; Visit Provider Internal Medicine | DX: Z79.899 Other long term (current) drug therapy (principal); R79.89 Other specified abnormal findings of blood chemistry | CPT/HCPCS: 36415; 85025 ==

== ENCOUNTER → 2025-02-20 13:04 | Outpatient (BNVA) | payer MEDICARE, MEDICAID, SELFPAY | PROVIDERS: PCP Nurse Practitioner Family; Visit Provider Orthopaedic Surgery | DX: M47.22 Other spondylosis with radiculopathy, cervical region (principal); R25.8 Other abnormal involuntary movements; Z09 Encounter for follow-up examination after completed treatment for conditions other than malignant neoplasm | CPT/HCPCS: 99214 ==

== ENCOUNTER → 2025-03-10 09:19 | Outpatient (BNVA) | payer MEDICARE, MEDICAID, SELFPAY | PROVIDERS: PCP Nurse Practitioner Family; Referring Provider Orthopaedic Surgery; Visit Provider Anesthesiology Pain Medicine | DX: M47.22 Other spondylosis with radiculopathy, cervical region (principal) | CPT/HCPCS: 99204 ==

== ENCOUNTER → 2025-03-20 10:28 | Outpatient (BNVA) | payer MEDICARE, MEDICAID, SELFPAY | PROVIDERS: PCP Nurse Practitioner Family; Visit Provider Orthopaedic Surgery | DX: M54.12 Radiculopathy, cervical region (principal); M99.61 Osseous and subluxation stenosis of intervertebral foramina of cervical region; M25.511 Pain in right shoulder; M25.512 Pain in left shoulder | CPT/HCPCS: 36415; 80053; 81001; 85025; 99214 ==

== ENCOUNTER 2025-04-03 09:18 | Outpatient (CLI) | payer MEDICARE, MEDICAID, SELFPAY ==
--- NOTE | 2025-04-03 | ECG_ITS ---
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 Interpretive Statements Findings: The patient's baseline blood pressure was 142/96 with a heart rate of 80 bpm. The patient exercised for total of 5 minutes and 17 seconds reaching 7 METS and a maximum heart rate of 146 bpm which was 94% of the patient's maximal predicted heart rate. The maximum blood pressure was 235/118. at the end of recovery the patient's blood pressure was 152/87 with a heart rate of 105 bpm. The baseline EKG showed normal sinus rhythm with a possible old inferior wall myocardial infarction. There were no ST or T wave changes with exercise. There were no arrhythmias. CONCLUSION: 1. Exercise capacity was average for age. 2. Heart rate response was appropriate. 3. Blood pressure response was hypertensive. 4. No symptoms of angina during exercise. 5. Electrocardiogram portion of the stress test without evidence of ischemia. 6. Nuclear scan will be documented separately. Electronically Signed On 04-03-2025 19:46:32 BATTER OUT by Heron Salas M.D. [email or web address]
[2025-04-03 09:44] VITALS: BMI 34.2
--- NOTE | 2025-04-03 09:45 | NMCV_ITS ---
NM santy perf SPECT r/s* [id number] Heriberto Hinojosa (Khanh) Age: 65 Gender: M : 1960 Exam Date: 04/03/2025 10:15 Ordering Phys: Scott Baez MD Technologist: JORJE Parker Exam Location: [facility] Indications: cp STRESS TEST [facility] IMAGE PROTOCOL Rest/Stress 1 Exercise Day Radiopharmaceutical Dose (mCi) Administration Site Administered by Rest: Tc-99m 10.8 IV JORJE Parker Sestamibi Stress:Tc-99m 32.9 IV JORJE Byrd Sestamibi Rest: 03-Apr-2025 60 Discovery 630 Stress: 03-Apr-2025 15 Discovery 630 Radiopharmaceutical was injected at 85 % maximum heart rate. Supine position only as patient was unable to lay prone. SPECT RESULTS Technical Quality: Good Raw Data Analysis: Normal Image Corrections: No attenuation or motion correction applied Summed Stress Score: 0 Summed Rest Score: 0 Summed Difference Score: 0 PERFUSION FINDINGS SPECT images demonstrate homogeneous tracer distribution throughout the myocardium. FUNCTIONAL RESULTS (calculated via Gated SPECT) Stress Image LV EF (%): 80 Stress EDV (mL):49 TID: 0.65 Stress ESV (mL):10 FUNCTIONAL FINDINGS: There is normal left ventricular systolic function. IMPRESSIONS Myocardial perfusion imaging is normal. Normal left ventricular systolic function, EF >75%. Heron Salas MD, FACC (Electronically Signed) Final Date: 03 April 2025 19:05 S
[2025-04-03 11:21] VITALS: BP 152/87; PULSE 104
== END 2025-04-03 09:19 | disposition home or self-care (01) ==
LOC: CDL 09:22
PROVIDERS: PCP Nurse Practitioner Family; Visit Provider Family Medicine
DX: R07.9 Chest pain, unspecified (principal); R94.31 Abnormal electrocardiogram [ECG] [EKG]
CPT/HCPCS: 36415; 78452; 93017; A9500

== ENCOUNTER 2025-04-09 06:33 | Day surgery (SDC) | payer MEDICARE, MEDICAID, SELFPAY ==
[2025-04-09] VITALS (10 sets, daily range): BP systolic 132–167; BP diastolic 90–110; PULSE 63–85; RESP 15–18; TEMP 35.8–36.8; O2SAT 93–99; BMI 34.7
--- NOTE | 2025-04-09 07:38 | ANES.PREANE2 ---
Pre-Anesthetic Assessment Height/Weight: Height 5 ft 9 in Weight 235 lb Temp Pulse Resp BP Pulse Ox O2 Del Method 98.2 F 85 18 167/110 96 Room Air 04/09/25 06:50 04/09/25 06:50 04/09/25 06:50 04/09/25 06:50 04/09/25 06:50 04/09/25 07:00 Preop Diagnosis: Cervical stenosis with radiculopathy and myelopathy Operation Date: 04/09/25 08:20 Proposed Procedures p Anterior Cervical Discectomy & Fusion ACDF(Not Applicable) - Coy Briceno, DO Was Beta Мария taken within 24 hours: N/A Was Clonidine taken within 24 hours: N/A Last intake: Intake Last Liquid Date 04/08/25 Last Liquid Time 20:00 Last Solid Date 04/08/25 Last Solid Time 20:00 Social No alcohol and No tobacco Exam alert, oriented x 3, clear to auscultation bilaterally and regular rate & rhythm Airway Submandibular: within normal limits Cervical ROM: Other (Limited due to pain and neck radiation) Mallampati: Class III Dentition: full Comments: Comments: Patient has multiple missing teeth, front gold tooth Anesthetic Plan ASA status: 3 Anesthesia: General Other: No prior issues with anesthesia in the past NPO since yesterday evening History of hypertension on valsartan. Preop BP 167/110 CHARU COPD and asthma. Denies smoking Patient had prior throat cancer requiring radiation in 2017. Patient states that he has difficulty with acid reflux and if he does not take his omeprazole he cannot even swallow water History of polycythemia vera Per preop visit, EKG sinus rhythm with 1 PVC Labs 03/20/2024 reviewed and acceptable for procedure Plan for GETA Medications/Allergies Home Medications ?Medication ?Instructions ?Recorded ?Confirmed ?Last Taken ?Type multivitamin (Daily Multi-Vitamin 1 tab PO DAILY 11/13/19 04/09/25 Unknown History tablet) blood-glucose meter (Blood Glucose #1 ea 07/31/23 03/20/25 Unknown Rx Monitoring kit) qbxbkio-kgnvanuzbofya-gvawlepl 250 1 tab PO Q6H PRN pain #30 tabs 09/05/23 04/09/25 04/06/25 Rx mg-250 mg-65 mg tablet (Excedrin Migraine) azelastine 137 mcg (0.1 %) nasal 137 mcg intranasal PRN PRN Allergy 11/15/23 04/09/25 04/07/25 History spray Symptoms triamcinolone acetonide 55 mcg 1 spray intranasal BID #16.9 mL 12/11/23 04/09/25 04/08/25 Rx nasal spray aerosol (Nasacort) blood sugar diagnostic (OneTouch #10 ea 12/28/23 03/20/25 Unknown History Ultra Test strips) blood-glucose meter (OneTouch #1 ea 12/28/23 03/20/25 Unknown History Ultra2 Meter) lancets 33 gauge ([employer]Touch [employer]ica #100 ea 12/28/23 03/20/25 Unknown History Plus Lancet) tizanidine 4 mg tablet 4 mg PO BID PRN muscle spasticity 12/28/23 04/09/25 Unknown Rx #60 tabs ondansetron 4 mg disintegrating 4 mg PO Q6H PRN nausea and 08/09/24 04/09/25 Unknown Rx tablet vomiting #30 tabs auto-titrating cpap 6-16cm #1 ea 10/03/24 03/20/25 Unknown Rx allopurinol 100 mg tablet 100 mg PO 1XD 04/09/25 04/09/25 04/09/25 History budesonide-formoterol HFA 160 2 puff inhalation BID SOB 04/09/25 04/09/25 04/02/25 History mcg-4.5 mcg/actuation aerosol inhaler (Symbicort) dapagliflozin propanediol 10 mg 10 mg PO 1XD 04/09/25 04/09/25 04/09/25 History tablet (Farxiga) epinephrine 0.3 mg/0.3 mL 0.3 ml IM PRN Anaphylaxis 04/09/25 Unknown History injection, auto-injector hydroxyzine pamoate 25 mg capsule 25 mg PO 3XD 04/09/25 04/09/25 04/09/25 History levocetirizine 5 mg tablet 5 mg PO 1XD 04/09/25 04/09/25 04/09/25 History linaclotide 145 mcg capsule 145 mcg PO DAILY PRN Abdominal 04/09/25 04/09/25 Unknown History (Linzess) Discomfort montelukast 10 mg tablet 10 mg PO 1XD 04/09/25 04/09/25 04/08/25 History omeprazole 40 mg capsule,delayed 40 mg PO 1XD 04/09/25 04/09/25 04/09/25 History release rosuvastatin 40 mg tablet 40 mg PO 1XD 04/09/25 04/09/25 04/08/25 History thyroid (pork) 90 mg tablet 90 mg PO 1XD 04/09/25 04/09/25 04/08/25 History ([place] Thyroid) valsartan 320 mg tablet 320 mg PO 1XD 04/09/25 04/09/25 04/08/25 History Allergies Allergy/AdvReac Type Severity Reaction Status Date / Time benzocaine Allergy ADR-Vomitin Verified 04/09/25 07:15 g codeine Allergy ADR-Vomitin Verified 04/09/25 07:15 g hydrocodone Allergy ADR-Vomitin Verified 04/09/25 07:15 g opium tincture Allergy Unknown Verified 04/09/25 07:15 amlodipine AdvReac Mild ADR-Blurry Verified 04/09/25 07:15 Vision Current Medications Generic Name Dose Route Start Last Admin Trade Name Freq PRN Reason Stop Dose Admin Sodium Chloride 1,000 mls @ 30 mls/hr 04/09/25 06:45 04/09/25 07:27 Sodium Chloride 0.9% IV 04/10/25 06:44 30 mls/hr .Q24H FLORENTIN Administration PFSH Anesthesia Medical History Adult onset hypothyroidism CKD (chronic kidney disease) stage 3, GFR 30-59 ml/min Hyperlipidemia, mixed Essential hypertension Insomnia Vitamin D deficiency Hx of neoplasm neck and tongue left working with [facility] oncology GERD (gastroesophageal reflux disease) Surgical History 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 January 2017 History of tonsillectomy Family History Mother Cancer Grandmother Cancer Denies family history of Clotting disorder Social History Smoking and tobacco/nicotine status: never used tobacco/nicotine Second hand smoke exposure: No Alcohol intake: never Substance/Drug Use: never Adopted: No Caregiver/support person: No Lives independently: Yes Household members: other Housing: House Marital status: Unknown Highest education level completed: Associate Degree: Academic Program service: No Current occupational status: disabled Do you think of yourself as: Straight/Heterosexual Current gender identity: Male Special chris needs: No Data Anesthesia Cardiac Studies: Sestamibi Stress Test (Cardiology) 04/03/25
[2025-04-09] MEDS: ceFAZolin 2,000 mg SDV 2000 MG IVP (08:09)
--- NOTE | 2025-04-09 08:13 | W.PM.OPSUD ---
Surgery/Procedure H&P Update DATE OF PROCEDURE: April 09, 2025 DATE H&P PERFORMED: 03/20/25 H&P UPDATE INFORMATION: I have reviewed H&P completed within last 30 days, I have examined patient prior to procedure and No changes to prior documentation PREOP DIAGNOSIS: Cervical stenosis with radiculopathy and myelopathy PLANNED PROCEDURE: Operation Date: 04/09/25 08:20 Proposed Procedures p Anterior Cervical Discectomy & Fusion ACDF(Not Applicable) - Coy Briceno DO
[2025-04-09] MEDS: lidocaine-epi 1% PF 1:200,000 30 mL SDV INJECTION (08:34)
--- NOTE | 2025-04-09 09:43 | P.OP_ITS ---
Operative Report Date of procedure: April 09, 2025 Pre-op diagnosis: Cervical stenosis with radiculopathy Post-op diagnosis: same Procedure done: 1. Anterior diskectomy C5/6 2. Anterior discectomy C6/7 3. Insertion of cage C5/6 4. Insertion of Cage C6/7 5. Instrumentation with anterior plate from C5-C7 6. Use of allograft Surgeon: Coy Briceno DO Estimated blood loss (mL): 25 Procedure: 1. Anterior diskectomy C5/6 2. Anterior discectomy C6/7 3. Insertion of cage C5/6 4. Insertion of Cage C6/7 5. Instrumentation with anterior plate from C5-C7 6. Use of allograft The patient was taken to the operating room, where he underwent general endotracheal anesthesia without complications. He was then positioned supine on the operating table, and all areas of impingement were well padded. The arms were carefully padded and tucked at his sides. A roll was placed between the shoulder blades.. An x-ray was done to determine the appropriate level for the skin incision. The entire neck was then sterilely prepped and draped in the usual fashion. Neuromonitoring was attached prior to prepping. A transverse skin incision was made and carried down to the platysma muscle. This was then split in line with its fibers. Blunt dissection was carried down medial to the carotid sheath and lateral to the trachea and esophagus until the anterior cervical spine was visualized. A needle was placed into a disc and an x-ray was done to determine its location. The longus colli muscles were then elevated bilaterally with the electrocautery unit. Self-retaining retractors were placed deep to the longus colli muscle. Attention was brought to the C5/6 level that was confirmed on x-ray. A caspar pin was placed into the C5 vertebrae and the C6 vertebrae. The disk space was then distracted. The microscope was then brought in. A radical anterior discectomies were performed at C5/6. This included complete removal of the anterior annulus, nucleus, and posterior annulus. The posterior longitudinal ligament was removed as were the posterior osteophytes. Foraminotomies were then accomplished bilaterally. This was done using a high speed jeovanny, kerrison rongeurs and curretes Once all of this was accomplished, the curved currette was used to check for any residual compression. The central canal was wide open as were the foramen. A high-speed bur was used to remove the cartilaginous endplates above and below the interspace. Bleeding cancellous bone was exposed. The disc space were measured and appropriate size cage were placed sterilely onto the field. Allograft graft was packed into the cages. The cage was then placed and there was good juxtaposition against the bleeding decorticated surfaces and good distraction of each interspace. Attention was brought to the next interspace. The [place] pins were removed. Bone wax was used to prevent any bleeding from occurring at the pin sites. Attention was brought to the C6/7 level that was confirmed on x-ray. A caspar pin was placed into the C6 vertebrae and the C7 vertebrae. The disk space was then distracted. The microscope was then brought in. A radical anterior discectomies were performed at C6/7. This included complete removal of the anterior annulus, nucleus, and posterior annulus. The posterior longitudinal ligament was removed as were the posterior osteophytes. Foraminotomies were then accomplished bilaterally. This was done using a high speed jeovanny, kerrison rongeurs and curretes Once all of this was accomplished, the curved currette was used to check for any residual compression. The central canal was wide open as were the foramen. A high-speed bur was used to remove the cartilaginous endplates above and below the interspace. Bleeding cancellous bone was exposed. The disc space were measured and appropriate size cage were placed sterilely onto the field. Allograft graft was packed into the cages. The cage was then placed and there was good juxtaposition against the bleeding decorticated surfaces and good distraction of each interspace. The [place] pins were removed. Bone wax was used to prevent any bleeding from occurring at the pin sites. The appropriate size anterior cervical locking plate was chosen and bent into gentle lordosis. Two screws were then placed into each of the vertebral bodies at C5, C6 and C7. There was excellent purchase. A final x-ray was done confirming good position of the hardware and Cages. The locking screws were then applied, also with excellent purchase. Following a final copious irrigation, there was good hemostasis and no dural leaks. The carotid pulse was strong. The wounds were then closed in layers using 2-0 Vicryl suture for the platysma muscle, 2-0 Vicryl suture for the subcutaneous tissue, and 4-0 monocryl suture in a subcuticular skin closure. Glue was placed followed by application of a sterile dressing. The drain was hooked to bulb suction. A soft collar was applied. The patient was then carefully returned to the supine position on his hospital bed where he was reversed and extubated and taken to the recovery room having tolerated the procedure well.
--- NOTE | 2025-04-09 11:50 | ANE.PACU2 ---
Inpatient post-anesthesia follow up: Airway intact: Yes Vital signs: Temperature 96.4 F Pulse Rate 84 Respiratory Rate 18 Blood Pressure 162/102 Pulse Oximetry 93 Oxygen Delivery Me thod Room Air Oxygen Flow Rate 8 Fraction of Inspir ed Oxygen Hydration adequate: Yes Nausea and vomiting: No Pain level: 1 Mental status: Baseline
--- NOTE | 2025-04-09 15:33 | XR_ITS ---
WS: [id number] XR cervical spine 3V* [id number] REASON FOR EXAM: or pic, acdf FINDINGS: Plate and screw fixation with interbody fusion devices C5-C7. Surgical appliances are intact and in proper position and alignment. XR/XR cervical spine 3V* [id number] IMPRESSION: Anterior cervical fusion without abnormality.
== END 2025-04-09 11:50 | disposition home or self-care (01) ==
PROVIDERS: PCP Nurse Practitioner Family; Visit Provider Orthopaedic Surgery
PROC: 0RB30ZZ Excision of Cervical Vertebral Disc, Open Approach (ICD-10-PCS; CPT 22551; principal; 2025-04-09 08:20)
DX: M48.02 Spinal stenosis, cervical region (principal); M54.12 Radiculopathy, cervical region; I12.9 Hypertensive chronic kidney disease with stage 1 through stage 4 chronic kidney disease, or unspecified chronic kidney disease; N18.30 Chronic kidney disease, stage 3 unspecified; K21.9 Gastro-esophageal reflux disease without esophagitis; E03.9 Hypothyroidism, unspecified; E78.2 Mixed hyperlipidemia; Z85.89 Personal history of malignant neoplasm of other organs and systems; Z79.82 Long term (current) use of aspirin; Z80.9 Family history of malignant neoplasm, unspecified
CPT/HCPCS: 22551; 22552; 22853 ×2; 20930; 22845; 72040; 76000; A4649; C1713; C1763; C9359; J0330; J0690; J1100; J1171; J2250; J2371; J2405; J2704; J3010; J3490; J7030; J9999

== ENCOUNTER 2025-04-12 17:12 | Emergency (ER) | payer MEDICARE, MEDICAID, SELFPAY ==
[2025-04-12 17:16] VITALS: BP 136/76; PULSE 91; RESP 16; TEMP 36.9; O2SAT 93; BMI 34.7
--- NOTE | 2025-04-12 18:05 | CTR_ITS ---
PROCEDURE INFORMATION: Exam: CT Neck With Contrast Exam date and time: 04/12/2025 6:20 PM Age: 65 years old Clinical indication: Mass, lump, or swelling in neck; Anterior; Prior surgery; Surgery date: 3-7 days post-operative; Surgery type: Cervical fusion on Monday; Additional info: Swelling, drainage post cervical fusion TECHNIQUE: Imaging protocol: Computed tomography of the neck with contrast. Radiation optimization: All CT scans at this facility use at least one of these dose optimization techniques: automated exposure control; mA and/or kV adjustment per patient size (includes targeted exams where dose is matched to clinical indication); or iterative reconstruction. Contrast material: OMNIPAQUE 350; Contrast volume: 100 ml; Contrast route: INTRAVENOUS (IV); COMPARISON: CT neck w con* [id number] 02/17/2020 9:02 AM RADIATION DOSE METRICS: Total DLP (mGy-cm): 250.81 FINDINGS: Salivary glands: The parotid and submandibular glands are within normal limits. Pharynx: Unremarkable. No significant tonsillar enlargement. Larynx: The epiglottis is within normal limits. Thyroid: The thyroid gland is normal. Trachea: The visualized portions of the trachea are patent. Lungs: Mild apical scarring or atelectasis. Mediastinal space: Mild to moderate soft tissue thickening and small areas of gas in the right pre and paratracheal soft tissues at the level of the surgery, likely postoperative in nature. A small hematoma could be present. No definitive fluid collection is identified. Lymph nodes: No enlarged lymph nodes are identified. 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 Bones/joints: Status post anterior cervical discectomy and fusion C5-C7. Hardware appears intact. Soft tissues: Mild prevertebral soft tissue swelling and gas, not unexpected in the postoperative setting. CT/CT neck w con* [id number] IMPRESSION: Status post anterior cervical discectomy and fusion from C5-C7 with areas of soft tissue swelling and gas, not unexpected in the postoperative setting. Small hematomas may be present though no clearly defined fluid collection is identified.
[2025-04-12] MEDS: iohexol 350 mg/mL 500 mL Btl (per mL) IV (18:23)
[2025-04-12 18:24] LABS: Hematocrit 53.4 % (37-53); Hemoglobin 18.40 g/dL (11.27-16.99); Mean Corpuscular HGB Conc 34.5 g/dL (30-55); Mean Corpuscular Hemoglobin 30.9 pg (27-33); Mean Corpuscular Volume 89.6 fl (82-101); Nucleated Red Blood Cells % 0 %; Platelet Count 268 10^3/cmm (157-399); Red Blood Count 5.96 10^6/uL (3.85-5.65); White Blood Count 8.77 10^3/uL (3.29-11.43)
--- NOTE | 2025-04-12 18:34 | W.ED.NECK ---
HPI - Neck Pain/Injury General: Chief Complaint: Neck Pain/Injury Stated Complaint: postop swelling (3Xdays) Time Seen by Provider: 04/12/25 17:47 Source: patient Mode of arrival: ambulatory Limitations: no limitations History of Present Illness: Patient is a 65-year-old male who presents to the emergency department with swelling to his anterior neck. He had cervical fusion surgery on 04/09, states that he was told to present to the ED by his primary care if he had noticed any redness swelling or drainage. Does note mild drainage but primarily the swelling, which is mostly at the incision itself. He denies any trouble breathing, hemoptysis, fevers, chills, nausea/vomiting, or any other symptoms at this time. Airway appearing patent, he is in no acute respiratory distress. Afebrile, rest of his vitals are stable. He did have a c-collar on, on arrival. No chest pain or shortness of breath. MD complaint: other (Neck pain/swelling/redness status post surgery 04/09) Associated symptoms: Denies headache(s) or nausea Related Data Home Medications ?Medication ?Instructions ?Recorded ?Confirmed multivitamin (Daily Multi-Vitamin 1 tab PO DAILY 11/13/19 04/09/25 tablet) azelastine 137 mcg (0.1 %) nasal 137 mcg intranasal PRN PRN Allergy 11/15/23 04/09/25 spray Symptoms blood sugar diagnostic (OneTouch #10 ea 12/28/23 03/20/25 Ultra Test strips) blood-glucose meter (OneTouch #1 ea 12/28/23 03/20/25 Ultra2 Meter) lancets 33 gauge (OneTouch Delica #100 ea 12/28/23 03/20/25 Plus Lancet) allopurinol 100 mg tablet 100 mg PO 1XD 04/09/25 04/09/25 budesonide-formoterol HFA 160 2 puff inhalation BID SOB 04/09/25 04/09/25 mcg-4.5 mcg/actuation aerosol inhaler (Symbicort) dapagliflozin propanediol 10 mg 10 mg PO 1XD 04/09/25 04/09/25 tablet (Farxiga) epinephrine 0.3 mg/0.3 mL 0.3 ml IM PRN Anaphylaxis 04/09/25 injection, auto-injector hydroxyzine pamoate 25 mg capsule 25 mg PO 3XD 04/09/25 04/09/25 levocetirizine 5 mg tablet 5 mg PO 1XD 04/09/25 04/09/25 linaclotide 145 mcg capsule 145 mcg PO DAILY PRN Abdominal 04/09/25 04/09/25 (Linzess) Discomfort montelukast 10 mg tablet 10 mg PO 1XD 04/09/25 04/09/25 omeprazole 40 mg capsule,delayed 40 mg PO 1XD 04/09/25 04/09/25 release rosuvastatin 40 mg tablet 40 mg PO 1XD 04/09/25 04/09/25 thyroid (pork) 90 mg tablet 90 mg PO 1XD 04/09/25 04/09/25 ([place] Thyroid) valsartan 320 mg tablet 320 mg PO 1XD 04/09/25 04/09/25 Previous Rx's ?Medication ?Instructions ?Recorded blood-glucose meter (Blood Glucose #1 ea 07/31/23 Monitoring kit) [id number] 250 1 tab PO Q6H PRN pain #30 tabs 09/05/23 mg-250 mg-65 mg tablet (Excedrin Migraine) triamcinolone acetonide 55 mcg 1 spray intranasal BID #16.9 mL 12/11/23 nasal spray aerosol (Nasacort) tizanidine 4 mg tablet 4 mg PO BID PRN muscle spasticity 12/28/23 #60 tabs ondansetron 4 mg disintegrating 4 mg PO Q6H PRN nausea and 08/09/24 tablet vomiting #30 tabs auto-titrating cpap 6-16cm #1 ea 10/03/24 oxycodone 5 mg tablet 5 mg PO Q4H PRN pain 7 days #42 04/09/25 tabs cephalexin 500 mg capsule 500 mg PO Q6H 7 days #28 caps 04/12/25 Allergies Allergy/AdvReac Type Severity Reaction Status Date / Time benzocaine Allergy ADR-Vomitin Verified 04/12/25 17:21 g codeine Allergy ADR-Vomitin Verified 04/12/25 17:21 g hydrocodone Allergy ADR-Vomitin Verified 04/12/25 17:21 g opium tincture Allergy Unknown Verified 04/12/25 17:21 amlodipine AdvReac Mild ADR-Blurry Verified 04/12/25 17:21 Vision Review of Systems General: Reports: 10 or more systems reviewed and unremarkable except in HPI and below Const: Denies: fever(s), chills or fatigue Eyes: Denies: change in vision ENMT: Denies: throat pain, ear or mastoid pain or nasal discharge Card: Denies: chest pain, palpitations, swelling of feet/ankles or lightheadedness Resp: Denies: dyspnea, productive cough or wheezing GI: Denies: abdominal pain, nausea, vomiting, diarrhea or constipation : Denies: flank pain, difficulty urinating, dysuria or urinary frequency Musc: Reports: neck pain; Denies: back pain or joint pain Skin/Breast: Reports: erythema and skin swelling; Denies: rash Neuro: Denies: headache(s), numbness in extremities or weakness in extremities PFSH ED PFSH: Medical History Adult onset hypothyroidism CKD (chronic kidney disease) stage 3, GFR 30-59 ml/min Hyperlipidemia, mixed Essential hypertension Insomnia Vitamin D deficiency Hx of neoplasm neck and tongue left working with [facility] GERD (gastroesophageal reflux disease) Surgical History 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 January 2017 History of tonsillectomy Family History Mother Cancer Grandmother Cancer Denies family history of Clotting disorder Social History Smoking and tobacco/nicotine status: never used tobacco/nicotine Second hand smoke exposure: No Alcohol intake: never Substance/Drug Use: never Adopted: No Caregiver/support person: No Lives independently: Yes Household members: other Housing: House Marital status: Unknown Highest education level completed: Associate Degree: Academic Program service: No Current occupational status: disabled Do you think of yourself as: Straight/Heterosexual Current gender identity: Male Special chris needs: No Physical Exam Const: COMMON NORMALS: no acute distress, patient oriented x3 and no limitations GENERAL APPEARANCE: cooperative, comfortable and well developed ORIENTATION/CONSCIOUSNESS: Yes awake, Yes oriented to person, Yes oriented to place and Yes oriented to time OTHER: No respiratory distress HENMT: COMMON NORMALS: normocephalic, atraumatic and hearing grossly normal bilaterally HEAD & SCALP: normocephalic and atraumatic OTHER: Posterior oropharyngeal exam unremarkable. Eye: COMMON NORMALS: Equal, round and reactive pupils present, EOMs intact bilaterally and conjunctivae normal CONJUNCTIVA: Yes conjunctivae normal PUPIL: Yes Equal, round and reactive pupils present Neck/C-Spine: COMMON NORMALS: full ROM OTHER: Anterior neck incision, mild erythema and skin swelling but no active drainage. No area of palpable fluctuance. Resp: COMMON NORMALS: normal respiratory effort, No retractions, No use of accessory muscles and clear to auscultation bilaterally AUSCULTATION: clear to auscultation bilaterally Cardio: COMMON NORMALS: regular rate, regular rhythm, No clicks present (Cardio), No murmurs present (Cardio) and No rub (Cardio) RATE: regular rate RHYTHM: regular rhythm Extremity: COMMON NORMALS: normal to inspection, full ROM and capillary refill normal Neuro: COMMON NORMALS: patient oriented x3, moves all extremities, no focal motor deficits and no sensory deficits noted SENSORIUM/ORIENTATION: Yes oriented to person, Yes oriented to place and Yes oriented to time Skin: COMMON NORMALS: no rashes or lesions noted GENERAL SKIN EXAM: no rashes or lesions noted Course Vital Signs: Vital signs: Vital Signs Temperature 98.4 F 04/12/25 17:16 Pulse Rate 91 04/12/25 17:16 Respiratory Rate 16 04/12/25 17:16 Blood Pressure 136/76 04/12/25 17:16 Pulse Oximetry 93 04/12/25 17:16 Oxygen Delivery Me thod Room Air 04/12/25 17:16 MDM - Neck Pain/Injury Medical Decision Making Patient presented for swelling and redness to the incision site of which she recently had anterior cervical fusion with Dr. Briceno. He had no respiratory complaints, just noted that there had been some intermittent drainage from the wound. On exam there is mild redness and swelling adjacent to the incision but no active drainage, airway patent and he is in no respiratory distress. Also is afebrile, has not been feverish at home or having chills, no other signs or symptoms of systemic illness. Labs are nonspecific in the setting of being postoperative, there is elevation in his CRP but white count is normal. Neck CT with contrast shows no deep space infection, his soft tissue swelling but everything appears to be physiologic in the postoperative setting. I did speak to Dr. Briceno personally, who is comfortable seeing this patient as an outpatient still and patient will be started on Keflex empirically. Informed patient of this plan, he agrees and all other questions and concerns addressed. He knows to return with any worsening. Lab Data 04/12/25 18:18 04/12/25 18:[address] 04/12/25 18:05 IMPRESSION: Status post anterior cervical discectomy and fusion from C5-C7 with areas of soft tissue swelling and gas, not unexpected in the postoperative setting. Small hematomas may be present though no clearly defined fluid collection is identified. Laboratory Results WBC 8.77 10^3/uL (3.29-11.43) 04/12/25 18:18 RBC 5.96 10^6/uL (3.85-5.65) H 04/12/25 18:18 Hgb 18.40 g/dL (11.27-16.99) H 04/12/25 18:18 Hct 53.4 % (37-53) H 04/12/25 18:18 MCV 89.6 fl (82-101) 04/12/25 18:18 MCH 30.9 pg (27-33) 04/12/25 18:18 MCHC 34.5 g/dL (30-55) 04/12/25 18:18 RDW 12.3 % (12.1-15.1) 04/12/25 18:18 Plt Count 268 10^3/cmm (157-399) 04/12/25 18:18 MPV 9.5 fL (7.4-10.4) 04/12/25 18:18 Neut % (Auto) 67.1 % 04/12/25 18:18 Lymph % (Auto) 17.1 % 04/12/25 18:18 [place] % (Auto) 14.1 % 04/12/25 18:18 Eos % (Auto) 1.1 % 04/12/25 18:18 Baso % (Auto) 0.3 % 04/12/25 18:18 Neut # (Auto) 5.87 10^3/uL (1.8-7.7) 04/12/25 18:18 Lymph # (Auto) 1.5 10^3/uL (0.8-4.8) 04/12/25 18:18 [place] # (Auto) 1.2 10^3/uL (0.2-0.9) H 04/12/25 18:18 Eos # (Auto) 0.1 10^3/uL (0.0-0.8) 04/12/25 18:18 Baso # (Auto) 0.0 10^3/uL (0.0-0.1) 04/12/25 18:18 Nucleated RBC % (auto) 0 % 04/12/25 18:18 Nucleated RBCs # 0.0 /100WBC 04/12/25 18:18 ESR 4 mm/hr (0-10) 04/12/25 18:18 Sodium 139 mmol/L (136-145) 04/12/25 18:18 Potassium 4.0 mmol/L (3.5-5.1) 04/12/25 18:18 Chloride 97 mmol/L (98-107) L 04/12/25 18:18 Carbon Dioxide 31 mmol/L (22-29) H 04/12/25 18:18 Anion Gap 15.0 (5-19) 04/12/25 18:18 BUN 18 mg/dL (8-23) 04/12/25 18:18 Creatinine 1.2 mg/dL (0.7-1.2) 04/12/25 18:18 GFR Calculation 60.8 mL/min (90-130) L 04/12/25 18:18 Glucose 104 mg/dL (65-115) 04/12/25 18:18 Calculated Osmolality 290 mOsm/kg (285-295) 04/12/25 18:18 Calcium 9.8 mg/dL (8.5-10.5) 04/12/25 18:18 Total Bilirubin 1.0 mg/dL (0.15-1.2) 04/12/25 18:18 AST 26 U/L (0-40) 04/12/25 18:18 ALT 28 U/L (0-41) 04/12/25 18:18 Alkaline Phosphatase 95 U/L (40-130) 04/12/25 18:18 C-Reactive Protein 111.3 mg/L (0.0-4.9) H 04/12/25 18:18 Total Protein 8.2 g/dL (6.6-8.7) 04/12/25 18:18 Albumin 4.6 g/dL (3.5-5.2) 04/12/25 18:18 Globulin 3.6 g/dL (1.3-4.6) 04/12/25 18:18 All radiology interpretation(s) finalized by discharge Discharge Plan Discharge Patient Disposition: Home Clinical Impression: Cellulitis of neck Condition: Stable Prescriptions: New cephalexin 500 mg capsule 500 mg PO Q6H 7 Days Qty: 28 0RF No Action multivitamin [Daily Multi-Vitamin] Tablet 1 tab PO DAILY Excedrin Migraine 250-250-65 mg tablet 1 tab PO Q6H PRN (Reason: pain) Qty: 30 3RF azelastine 137 mcg (0.1 %) spray,non-aerosol 137 mcg intranasal PRN PRN (Reason: Allergy Symptoms) (DME) blood-glucose meter [OneTouch Ultra2 Meter] Misc See Rx Instructions .ROUTE .MEDSUPPLY Qty: 1 Rx Instructions: As directed (DME) OneTouch Ultra Test Strip See Rx Instructions .ROUTE .MEDSUPPLY Qty: 10 Rx Instructions: As directed (DME) lancets [OneTouch Delica Plus Lancet] 33 gauge misc See Rx Instructions .ROUTE .MEDSUPPLY Qty: 100 Rx Instructions: As directed tizanidine 4 mg tablet 4 mg PO BID PRN (Reason: muscle spasticity) Qty: 60 3RF Rx Instructions: take 1-2 at bedtime (DME) auto-titrating cpap 6-16cm See Rx Instructions .Route .MEDSUPPLY Qty: 1 0RF Rx Instructions: As directed triamcinolone acetonide [Nasacort] 55 mcg aerosol,spray 1 spray INTRANASAL BID Qty: 16.9 2RF (DME) blood-glucose meter [Blood Glucose Monitoring] Kit See Rx Instructions .Route Qty: 1 0RF Rx Instructions: As directed ondansetron 4 mg tablet,disintegrating 4 mg PO Q6H PRN (Reason: nausea and vomiting) Qty: 30 0RF allopurinol 100 mg tablet 100 mg PO 1XD omeprazole 40 mg capsule,delayed release(DR/EC) 40 mg PO 1XD valsartan 320 mg tablet 320 mg PO 1XD montelukast 10 mg tablet 10 mg PO 1XD hydroxyzine pamoate 25 mg capsule 25 mg PO 3XD rosuvastatin 40 mg tablet 40 mg PO 1XD levocetirizine 5 mg tablet 5 mg PO 1XD thyroid (pork) [[place] Thyroid] 90 mg tablet 90 mg PO 1XD Linzess 145 mcg capsule 145 mcg PO DAILY PRN (Reason: Abdominal Discomfort) dapagliflozin propanediol [Farxiga] 10 mg tablet 10 mg PO 1XD epinephrine 0.3 mg/0.3 mL auto-injector 0.3 ml IM PRN (Reason: Anaphylaxis) budesonide-formoterol [Symbicort] 160-4.5 mcg/actuation HFA aerosol inhaler 2 puff INHALATION BID oxycodone 5 mg tablet 5 mg PO Q4H PRN (Reason: pain) 7 Days Qty: 42 0RF Discharge Orders: Discharge ED (Routine); Ordered 04/12/25 Ordered By: Khanh Arzola Referrals: Mar Dominguez FNP [Primary Care Provider, Family Practice] Patient Instructions: Patient Portal & Shanika Instructions Activity Restrictions/Additional Instructions: Cellulitis Discharge Instructions Diagnosis: You have been diagnosed with cellulitis (a skin infection) at the site of your recent neck (cervical) fusion surgery. Imaging and lab tests did not show any deep infection, and your spine surgeon has approved outpatient treatment. Medications: - Take cephalexin (Keflex) 500 mg by mouth four times a day for 7 days, as prescribed. - Finish the entire course, even if you start to feel better before it is done. Wound Care: - Keep the incision area clean and dry. - Do not apply any creams, ointments, or dressings unless instructed by your doctor. - Wash your hands before and after touching the area. Monitoring and Follow-Up: - Expect improvement in redness, swelling, pain, and warmth within 24?48 hours of starting antibiotics. - Lakhwinder the edge of the redness with a pen to help track changes. - If the area is not improving after 2?3 days, or if it gets worse, contact your doctor promptly. When to Seek Immediate Medical Attention: - Fever over 100.4?F (38?C) - Increasing redness, swelling, or pain - Pus or drainage from the incision - Difficulty breathing or swallowing - New weakness, numbness, or tingling in your arms or legs - Feeling very unwell or confused Other Instructions: - Rest as needed, but you may continue normal activities as tolerated. - Elevate your head when resting to help reduce swelling, if comfortable. - Take acetaminophen or ibuprofen for pain, unless otherwise instructed. Follow-Up: - Keep your scheduled follow-up appointment with your spine surgeon or primary care provider. - Bring this information and your medication list to all appointments. If you have any questions or concerns, call your doctor or seek care right away. Print Language: Tongan Coding Level of Care Code ED Corporate Traffic Manager for Nirali Farrell
[2025-04-12 18:49] LABS: Alanine Aminotransferase 28 U/L (0-41); Albumin Level 4.6 g/dL (3.5-5.2); Alkaline Phosphatase 95 U/L (40-130); Anion Gap 15.0 (5-19); Aspartate Amino Transferase 26 U/L (0-40); Blood Urea Nitrogen 18 mg/dL (8-23); Calcium 9.8 mg/dL (8.5-10.5); Carbon Dioxide 31 mmol/L (22-29); Chloride 97 mmol/L (98-107); Globulin 3.6 g/dL (1.3-4.6); Glucose 104 mg/dL (65-115); Osmolality Calculated 290 mOsm/kg (285-295); Potassium 4.0 mmol/L (3.5-5.1); Sodium 139 mmol/L (136-145); Total Protein 8.2 g/dL (6.6-8.7)
[2025-04-12] MEDS: cefTRIAXone 1,000 mg SDV 1000 MG IVP (18:57)
[2025-04-12] MEDS: HYDROmorphone 0.5 MG/0.5 ML INJ 1 MG IVP (18:57)
== END 2025-04-12 19:55 | disposition home or self-care (01) ==
PROVIDERS: Emergency Provider Physician Assistant; PCP Nurse Practitioner Family
DX: L03.221 Cellulitis of neck (principal); E78.2 Mixed hyperlipidemia; Z85.810 Personal history of malignant neoplasm of tongue; Z85.89 Personal history of malignant neoplasm of other organs and systems; I12.9 Hypertensive chronic kidney disease with stage 1 through stage 4 chronic kidney disease, or unspecified chronic kidney disease; N18.30 Chronic kidney disease, stage 3 unspecified
CPT/HCPCS: 36415; 70491; 80053; 85025; 85651; 86140; 96361; 96374; 96375; 99285; J0696; J1100; J1171; J7040

== ENCOUNTER → 2025-04-24 14:08 | Outpatient (BNVA) | payer MEDICARE, MEDICAID, SELFPAY | PROVIDERS: PCP Nurse Practitioner Family; Visit Provider Orthopaedic Surgery | DX: Z98.890 Other specified postprocedural states (principal); Z98.1 Arthrodesis status | CPT/HCPCS: 99024 ==

== ENCOUNTER → 2025-05-12 10:46 | Outpatient (BNVA) | payer MEDICARE, MEDICAID, SELFPAY | PROVIDERS: PCP Nurse Practitioner Family; Visit Provider Nurse Practitioner Family | DX: E78.2 Mixed hyperlipidemia (principal); I10 Essential (primary) hypertension; M10.9 Gout, unspecified; Z12.5 Encounter for screening for malignant neoplasm of prostate; R73.9 Hyperglycemia, unspecified | CPT/HCPCS: 80053; 80061; 82607; 83036; 84439; 84443; 84550; 85025; G0103 ==